=== PATIENT | male | born 1970 | race Caucasian/White ===

== ENCOUNTER 2017-08-04 11:20 | Emergency (ER) | payer OTHER ==
[2017-08-04] MEDS ORDERED: SODIUM CHLORIDE 0.9% 1,000 ML IV STA (11:34)
[2017-08-04] MEDS ORDERED: FAMOTIDINE 20 MG/2 ML VIAL IV STA (11:34)
[2017-08-04] MEDS ORDERED: SODIUM CHLORIDE 0.9% 500 ML IV STA (11:35)
[2017-08-04] MEDS ORDERED: SODIUM CHLORIDE 0.9% 1,000 ML with MVI, ADULT NO.4 WITH VIT K 10 ML, THIAMINE 100 MG, F... IV ONE ×4 (11:35)
--- NOTE | 2017-08-04 11:38 | ED ---
General Adult HPI - General Chief complaint: Arrhythmia/Palpitations Stated complaint: ETOH, palpitations Time Seen by Provider: 08/04/17 11:26 Source: patient, family, RN notes reviewed Mode of arrival: ambulatory Limitations: no limitations - History of Present Illness Initial comments: Patient is a pleasant 46-year-old male presenting to the emergency Department with complaints of palpitations. Patient has been drinking alcohol heavily for the past days. Patient has not been eating or drinking other fluids. Patient felt his heart racing this morning. Patient states essentially that has resolved. Patient is concerned he could be somewhat dehydrated. No chest pain. - Related Data Home Medications Medication Instructions Recorded Confirmed LORazepam [Ativan] 1 mg PO Q6H PRN 08/04/17 08/04/17 Allergies Allergy/AdvReac Type Severity Reaction Status Date / Time Iodinated Contrast- Oral and Allergy Anaphylaxis Verified 08/04/17 11:48 IV Dye iodine Allergy Anaphylaxis Verified 08/04/17 11:48 shellfish derived [Shellfish] Allergy Anaphylaxis Verified 08/04/17 11:48 Review of Systems ROS Statement: Those systems with pertinent positive or pertinent negative responses have been documented in the HPI. ROS Other: All systems not noted in ROS Statement are negative. Constitutional: Denies: fever Eyes: Denies: eye pain ENT: Denies: ear pain Respiratory: Denies: cough Cardiovascular: Reports: palpitations. Denies: chest pain Endocrine: Reports: fatigue Gastrointestinal: Denies: abdominal pain, vomiting Genitourinary: Denies: dysuria Musculoskeletal: Denies: back pain Skin: Denies: rash Neurological: Denies: weakness Past Medical History Additional Past Medical History / Comment(s): alcohol History of Any Multi-Drug Resistant Organisms: None Reported Past Surgical History: Tonsillectomy Past Psychological History: Anxiety, Depression Smoking Status: Never smoker Past Alcohol Use History: Abuse, Heavy Past Drug Use History: None Reported General Exam Limitations: no limitations General appearance: alert, in no apparent distress Head exam: Present: atraumatic Eye exam: Present: normal appearance, PERRL ENT exam: Present: normal oropharynx Neck exam: Present: normal inspection Respiratory exam: Present: normal lung sounds bilaterally Cardiovascular Exam: Present: bradycardia GI/Abdominal exam: Present: soft. Absent: distended, tenderness Extremities exam: Present: normal inspection Neurological exam: Present: alert Psychiatric exam: Present: normal affect, normal mood Skin exam: Present: normal color Course Vital Signs 08/04/17 08/04/17 08/04/17 11:22 11:48 13:15 Temperature 97.3 F L Pulse Rate 110 H 86 94 Respiratory 22 18 18 Rate Blood Pressure 134/98 134/89 137/90 O2 Sat by Pulse 99 94 L 96 Oximetry EKG Findings - EKG Comments: EKG Findings:: Sinus arrhythmia with rate of 94. AK 148. QRS 88. QT 360. QTC 450. Normal axis. Normal QRS. No acute ST change. Medical Decision Making - Medical Decision Making Patient reevaluated and is feeling better. Patient updated on results and need for follow-up. - Lab Data Result diagrams: 08/04/17 11:54 08/04/17 11:54 Lab Results 08/04/17 08/04/17 08/04/17 Range/Units 11:54 11:54 11:54 WBC 8.0 (3.8-10.6) k/uL RBC 5.85 (4.30-5.90) m/uL Hgb 15.7 (13.0-17.5) gm/dL Hct 45.3 (39.0-53.0) % MCV 77.5 L (80.0-100.0) fL MCH 26.9 (25.0-35.0) pg MCHC 34.8 (31.0-37.0) g/dL RDW 15.2 (11.5-15.5) % Plt Count 249 (150-450) k/uL Neutrophils % 67 % Lymphocytes % 25 % Monocytes % 5 % Eosinophils % 1 % Basophils % 1 % Neutrophils # 5.4 (1.3-7.7) k/uL Lymphocytes # 2.0 (1.0-4.8) k/uL Monocytes # 0.4 (0-1.0) k/uL Eosinophils # 0.1 (0-0.7) k/uL Basophils # 0.1 (0-0.2) k/uL PT (9.0-12.0) sec INR (<1.2) APTT (22.0-30.0) sec Sodium 142 (137-145) mmol/L Potassium 4.3 (3.5-5.1) mmol/L Chloride 99 (98-107) mmol/L Carbon Dioxide 18 L (22-30) mmol/L Anion Gap 25 mmol/L BUN 15 (9-20) mg/dL Creatinine 0.95 (0.66-1.25) mg/dL Est GFR (CKD-EPI)AfAm >90 (>60 ml/min/1.73 sqM) Est GFR (CKD-EPI)NonAf >90 (>60 ml/min/1.73 sqM) Glucose 87 (74-99) mg/dL Calcium 9.6 (8.4-10.2) mg/dL Magnesium 2.2 (1.6-2.3) mg/dL Total Bilirubin 1.0 (0.2-1.3) mg/dL AST 99 H (17-59) U/L ALT 83 H (21-72) U/L Alkaline Phosphatase 72 (38-126) U/L Total Creatine Kinase 198 H (55-170) U/L CK-MB (CK-2) 1.3 (0.0-2.4) ng/mL CK-MB (CK-2) Rel Index 0.7 Troponin I <0.012 (0.000-0.034) ng/mL Total Protein 7.6 (6.3-8.2) g/dL Albumin 5.3 H (3.5-5.0) g/dL 08/04/17 Range/Units 11:54 WBC (3.8-10.6) k/uL RBC (4.30-5.90) m/uL Hgb (13.0-17.5) gm/dL Hct (39.0-53.0) % MCV (80.0-100.0) fL MCH (25.0-35.0) pg MCHC (31.0-37.0) g/dL RDW (11.5-15.5) % Plt Count (150-450) k/uL Neutrophils % % Lymphocytes % % Monocytes % % Eosinophils % % Basophils % % Neutrophils # (1.3-7.7) k/uL Lymphocytes # (1.0-4.8) k/uL Monocytes # (0-1.0) k/uL Eosinophils # (0-0.7) k/uL Basophils # (0-0.2) k/uL PT 9.6 (9.0-12.0) sec INR 1.0 (<1.2) APTT 24.4 (22.0-30.0) sec Sodium (137-145) mmol/L Potassium (3.5-5.1) mmol/L Chloride (98-107) mmol/L Carbon Dioxide (22-30) mmol/L Anion Gap mmol/L BUN (9-20) mg/dL Creatinine (0.66-1.25) mg/dL Est GFR (CKD-EPI)AfAm (>60 ml/min/1.73 sqM) Est GFR (CKD-EPI)NonAf (>60 ml/min/1.73 sqM) Glucose (74-99) mg/dL Calcium (8.4-10.2) mg/dL Magnesium (1.6-2.3) mg/dL Total Bilirubin (0.2-1.3) mg/dL AST (17-59) U/L ALT (21-72) U/L Alkaline Phosphatase (38-126) U/L Total Creatine Kinase (55-170) U/L CK-MB (CK-2) (0.0-2.4) ng/mL CK-MB (CK-2) Rel Index Troponin I (0.000-0.034) ng/mL Total Protein (6.3-8.2) g/dL Albumin (3.5-5.0) g/dL Disposition Clinical Impression: Palpitations Disposition: HOME SELF-CARE Condition: Stable Instructions: Palpitations (ED) Additional Instructions: Please follow-up with primary care physician in the next couple days for recheck. Return for chest pain, difficulty breathing, worsening or changing symptoms or other concerns. Discontinue alcohol use. Continue follow-up with Alcoholics Anonymous and counselor. Is patient prescribed a controlled substance at d/c from ED?: No Referrals: Marie Akins MD [Primary Care Provider] - 1-2 days Time of Disposition: 13:38
[2017-08-04 12:01] LABS: Basophils # (A) 0.1 k/uL (0-0.2); Basophils % (A) 1 %; Eosinophils # (A) 0.1 k/uL (0-0.7); Eosinophils % (A) 1 %; HCT 45.3 % (39.0-53.0); HGB 15.7 gm/dL (13.0-17.5); Lymphocytes % (A) 25 %; MCH 26.9 pg (25.0-35.0); MCHC 34.8 g/dL (31.0-37.0); MCV 77.5 fL (80.0-100.0); Mean Platelet Volume 6.3; Monocytes # (A) 0.4 k/uL (0-1.0); Monocytes % (A) 5 %; Neutrophils # (A) 5.4 k/uL (1.3-7.7); Neutrophils % (A) 67 %; Platelet Count 249 k/uL (150-450); RBC 5.85 m/uL (4.30-5.90); RDW 15.2 % (11.5-15.5)
[2017-08-04 12:09] LABS: Partial Thromboplastin Time 24.4 sec (22.0-30.0); Prothrombin Time 9.6 sec (9.0-12.0)
[2017-08-04 12:19] LABS: ALT 83 U/L (21-72); AST 99 U/L (17-59); Albumin 5.3 g/dL (3.5-5.0); Alkaline Phosphatase 72 U/L (38-126); Anion Gap 25 mmol/L; Blood Urea Nitrogen 15 mg/dL (9-20); Calcium 9.6 mg/dL (8.4-10.2); Carbon Dioxide 18 mmol/L (22-30); Chloride 99 mmol/L (98-107); Glucose 87 mg/dL (74-99); Magnesium 2.2 mg/dL (1.6-2.3); Potassium 4.3 mmol/L (3.5-5.1); Sodium 142 mmol/L (137-145); Total Protein 7.6 g/dL (6.3-8.2)
[2017-08-04 12:26] LABS: Creatine Kinase 198 U/L (55-170)
[2017-08-04 12:38] LABS: Creatine Kinase MB 1.3 ng/mL (0.0-2.4); Troponin I <0.012 ng/mL (0.000-0.034)
[2017-08-04 13:16] VITALS: RESP 18
[2017-08-04 15:01] VITALS: BP 132/80; PULSE 61; TEMP 97.6
== END 2017-08-04 15:00 | disposition home or self-care (01) ==
LOC: EC 11:20
DX: R00.2 Palpitations (principal); R00.1 Bradycardia, unspecified; F10.10 Alcohol abuse, uncomplicated; Z91.013 Allergy to seafood; Z91.041 Radiographic dye allergy status; Z91.048 Other nonmedicinal substance allergy status; Z53.8 Procedure and treatment not carried out for other reasons
CPT/HCPCS: 36415; 93005; 80053; 82550; 82553; 83735; 84484; 85025; 85610; 85730; 99285; 96365; 96366; 96375; 96361; J3411

== ENCOUNTER 2017-09-28 08:46 | Emergency (ER) | payer OTHER ==
[2017-09-28 08:59] VITALS: TEMP 97.9
[2017-09-28] MEDS ORDERED: SODIUM CHLORIDE 0.9% 1,000 ML IV STA (09:09)
[2017-09-28] MEDS ORDERED: SODIUM CHLORIDE 0.9% 1,000 ML with MVI, ADULT NO.4 WITH VIT K 10 ML, THIAMINE 100 MG, F... IV ONE ×4 (09:09)
--- NOTE | 2017-09-28 09:26 | ED ---
Alcohol HPI - General Chief Complaint: Alcohol Stated Complaint: Etoh Time Seen by Provider: 09/28/17 09:05 Source: patient, RN notes reviewed Mode of arrival: ambulatory Limitations: no limitations - History of Present Illness Initial Comments: 46-year-old male presents emergency Department chief complaint of alcohol abuse. Patient states he is a binge drinker. Patient states that last 3-4 days she's drank approximately 5 cyst. Patient states that he does not have any medical insurance and states that he cannot afford rehab. Patient sent suicidal or homicidal. Patient denies any physical complaints including he denies chest pain, shortness breath, headache, dizziness, abdominal pain. He's had no withdrawal seizures in the past. Patient does take Ativan but states he doesn't take it when he is binging. - Related Data Home Medications Medication Instructions Recorded Confirmed LORazepam [Ativan] 1 mg PO BID PRN 08/04/17 09/28/17 Previous Rx's Medication Instructions Recorded chlordiazePOXIDE HCl [Librium] 25 mg PO QID #20 capsule 09/28/17 Allergies Allergy/AdvReac Type Severity Reaction Status Date / Time Iodinated Contrast- Oral and Allergy Anaphylaxis Verified 09/28/17 09:31 IV Dye iodine Allergy Anaphylaxis Verified 09/28/17 09:31 shellfish derived [Shellfish] Allergy Anaphylaxis Verified 09/28/17 09:31 Review of Systems ROS Statement: Those systems with pertinent positive or pertinent negative responses have been documented in the HPI. ROS Other: All systems not noted in ROS Statement are negative. Past Medical History Additional Past Medical History / Comment(s): alcohol History of Any Multi-Drug Resistant Organisms: None Reported Past Surgical History: Tonsillectomy Past Psychological History: Anxiety, Depression Smoking Status: Never smoker Past Alcohol Use History: Abuse, Heavy Past Drug Use History: None Reported General Exam Limitations: no limitations General appearance: alert, in no apparent distress Head exam: Present: atraumatic, normocephalic, normal inspection Eye exam: Present: normal appearance, PERRL, EOMI. Absent: scleral icterus, conjunctival injection, periorbital swelling Neck exam: Present: normal inspection. Absent: tenderness, meningismus, lymphadenopathy Respiratory exam: Present: normal lung sounds bilaterally. Absent: respiratory distress, wheezes, rales, rhonchi, stridor Cardiovascular Exam: Present: regular rate, normal rhythm, normal heart sounds. Absent: systolic murmur, diastolic murmur, rubs, gallop, clicks GI/Abdominal exam: Present: soft, normal bowel sounds. Absent: distended, tenderness, guarding, rebound, rigid Neurological exam: Present: alert, oriented X3, CN II-XII intact Skin exam: Present: warm, dry, intact, normal color. Absent: rash Course Vital Signs 09/28/17 08:56 Temperature 97.9 F Pulse Rate 102 H Respiratory 18 Rate Blood Pressure 128/94 O2 Sat by Pulse 95 Oximetry Medical Decision Making - Medical Decision Making 46-year-old male presented from for alcohol abuse. Patient is a binge drinker. Patient is intoxicated though has normal lab work. Patient will be given Librium for alcohol withdrawal and he will follow-up with PCP and outpatient therapy. - Lab Data Result diagrams: 09/28/17 09:30 09/28/17 09:30 Lab Results 09/28/17 09/28/17 09/28/17 Range/Units 09:30 09:30 09:30 WBC 9.6 (3.8-10.6) k/uL RBC 5.92 H (4.30-5.90) m/uL Hgb 15.2 (13.0-17.5) gm/dL Hct 45.1 (39.0-53.0) % MCV 76.2 L (80.0-100.0) fL MCH 25.6 (25.0-35.0) pg MCHC 33.6 (31.0-37.0) g/dL RDW 13.8 (11.5-15.5) % Plt Count 342 (150-450) k/uL Neutrophils % 76 % Lymphocytes % 19 % Monocytes % 3 % Eosinophils % 1 % Basophils % 1 % Neutrophils # 7.3 (1.3-7.7) k/uL Lymphocytes # 1.8 (1.0-4.8) k/uL Monocytes # 0.3 (0-1.0) k/uL Eosinophils # 0.1 (0-0.7) k/uL Basophils # 0.1 (0-0.2) k/uL PT 9.6 (9.0-12.0) sec INR 1.0 (<1.2) Sodium 141 (137-145) mmol/L Potassium 4.6 (3.5-5.1) mmol/L Chloride 103 (98-107) mmol/L Carbon Dioxide 19 L (22-30) mmol/L Anion Gap 19 mmol/L BUN 17 (9-20) mg/dL Creatinine 0.89 (0.66-1.25) mg/dL Est GFR (CKD-EPI)AfAm >90 (>60 ml/min/1.73 sqM) Est GFR (CKD-EPI)NonAf >90 (>60 ml/min/1.73 sqM) Glucose 76 (74-99) mg/dL Calcium 9.3 (8.4-10.2) mg/dL Magnesium 2.2 (1.6-2.3) mg/dL Total Bilirubin 0.6 (0.2-1.3) mg/dL AST 37 (17-59) U/L ALT 46 (21-72) U/L Alkaline Phosphatase 64 (38-126) U/L Total Protein 7.3 (6.3-8.2) g/dL Albumin 5.1 H (3.5-5.0) g/dL Amylase 46 (30-110) U/L Lipase 133 (23-300) U/L Serum Alcohol 281 mg/dL Disposition Clinical Impression: Alcoholic intoxication, Alcohol consumption binge drinking Disposition: HOME SELF-CARE Condition: Stable Instructions: Alcohol Intoxication (ED) Additional Instructions: Please return to the Emergency Department if symptoms worsen or any other concerns. Prescriptions: chlordiazePOXIDE HCl [Librium] 25 mg PO QID #20 capsule Is patient prescribed a controlled substance at d/c from ED?: Yes When asked, does pt state using other controlled substances?: Yes If prescribed controlled substance>3 days was MAPS reviewed?: Yes Referrals: Marie Akins MD [Primary Care Provider] - 1-2 days Time of Disposition: 11:43
[2017-09-28 09:46] LABS: Basophils # (A) 0.1 k/uL (0-0.2); Basophils % (A) 1 %; Eosinophils # (A) 0.1 k/uL (0-0.7); Eosinophils % (A) 1 %; HCT 45.1 % (39.0-53.0); HGB 15.2 gm/dL (13.0-17.5); Lymphocytes # (A) 1.8 k/uL (1.0-4.8); Lymphocytes % (A) 19 %; MCH 25.6 pg (25.0-35.0); MCHC 33.6 g/dL (31.0-37.0); MCV 76.2 fL (80.0-100.0); Mean Platelet Volume 6.2; Monocytes # (A) 0.3 k/uL (0-1.0); Monocytes % (A) 3 %; Neutrophils # (A) 7.3 k/uL (1.3-7.7); Neutrophils % (A) 76 %; Platelet Count 342 k/uL (150-450); RBC 5.92 m/uL (4.30-5.90); RDW 13.8 % (11.5-15.5); WBC 9.6 k/uL (3.8-10.6)
[2017-09-28 10:01] LABS: ALT 46 U/L (21-72); AST 37 U/L (17-59); Albumin 5.1 g/dL (3.5-5.0); Alkaline Phosphatase 64 U/L (38-126); Amylase 46 U/L (30-110); Anion Gap 19 mmol/L; Blood Urea Nitrogen 17 mg/dL (9-20); Calcium 9.3 mg/dL (8.4-10.2); Carbon Dioxide 19 mmol/L (22-30); Chloride 103 mmol/L (98-107); Glucose 76 mg/dL (74-99); Lipase 133 U/L (23-300); Magnesium 2.2 mg/dL (1.6-2.3); Potassium 4.6 mmol/L (3.5-5.1); Sodium 141 mmol/L (137-145); Total Bilirubin 0.6 mg/dL (0.2-1.3); Total Protein 7.3 g/dL (6.3-8.2)
[2017-09-28 10:06] LABS: Alcohol 281 mg/dL
[2017-09-28 10:08] LABS: Prothrombin Time 9.6 sec (9.0-12.0)
[2017-09-28 13:38] VITALS: BP 141/75; PULSE 86; RESP 20
== END 2017-09-28 13:25 | disposition home or self-care (01) ==
LOC: EC 08:46
DX: F10.129 Alcohol abuse with intoxication, unspecified (principal); Z91.041 Radiographic dye allergy status; Z91.013 Allergy to seafood
CPT/HCPCS: 82075; 36415; 80053; 82150; 83690; 83735; 85025; 85610; 80320; 99284; 96365; 96366 ×2; J3411

== ENCOUNTER 2017-10-16 13:23 | Emergency (ER) | payer OTHER ==
[2017-10-16 13:33] VITALS: RESP 20; TEMP 98.6
[2017-10-16] MEDS ORDERED: SODIUM CHLORIDE 0.9% 1,000 ML IV STA (13:49)
[2017-10-16] MEDS ORDERED: SODIUM CHLORIDE 0.9% 1,000 ML with MVI, ADULT NO.4 WITH VIT K 10 ML, THIAMINE 100 MG, F... IV ONE ×4 (13:50)
--- NOTE | 2017-10-16 13:52 | ED ---
Alcohol HPI - General Chief Complaint: Alcohol Stated Complaint: Etoh Time Seen by Provider: 10/16/17 13:39 Source: patient, RN notes reviewed, old records reviewed Mode of arrival: ambulatory Limitations: no limitations - History of Present Illness Initial Comments: Patient is a 38-year-old male presents emergency Department with chief complaint of alcohol intoxication. Patient reports his been on a binge for the past 9 days. He reports strings approximately a fifth a day. Patient states that he has a history of heavy alcoholism. He states that he is not searching for rehab's place. He is concerned because his been drinking so heavily that he thinks he is dehydrated. He reports no vomiting or diarrhea. Patient states that he follows up with AA. He is here with his girlfriend. Patient reports he has prescriptions of Ativan for when he starts going through withdrawals. He states that he plans to withdrawn his own without any help from rehab facility. He's been to rehab multiple times when he was younger. - Related Data Home Medications Medication Instructions Recorded Confirmed LORazepam [Ativan] 1 mg PO BID PRN 08/04/17 09/28/17 Previous Rx's Medication Instructions Recorded chlordiazePOXIDE HCl [Librium] 25 mg PO QID #20 capsule 09/28/17 chlordiazePOXIDE HCl [Librium] 25 mg PO QID #20 capsule 10/16/17 Allergies Allergy/AdvReac Type Severity Reaction Status Date / Time Iodinated Contrast- Oral and Allergy Anaphylaxis Verified 10/16/17 13:33 IV Dye iodine Allergy Anaphylaxis Verified 10/16/17 13:33 shellfish derived [Shellfish] Allergy Anaphylaxis Verified 10/16/17 13:33 Review of Systems ROS Statement: Those systems with pertinent positive or pertinent negative responses have been documented in the HPI. ROS Other: All systems not noted in ROS Statement are negative. Past Medical History Past Medical History: No Reported History Additional Past Medical History / Comment(s): alcohol History of Any Multi-Drug Resistant Organisms: None Reported Past Surgical History: Tonsillectomy Past Psychological History: Anxiety, Depression Smoking Status: Never smoker Past Alcohol Use History: Abuse, Heavy Past Drug Use History: None Reported General Exam - General Exam Comments Initial Comments: 46-year-old male. Patient appears intoxicated. Alert. No significant distress. Limitations: no limitations General appearance: alert, in no apparent distress Head exam: Present: atraumatic, normocephalic, normal inspection Eye exam: Present: normal appearance, PERRL, EOMI. Absent: scleral icterus, conjunctival injection, periorbital swelling ENT exam: Present: normal exam, mucous membranes moist Neck exam: Present: normal inspection. Absent: tenderness, meningismus, lymphadenopathy Respiratory exam: Present: normal lung sounds bilaterally. Absent: respiratory distress, wheezes, rales, rhonchi, stridor Cardiovascular Exam: Present: regular rate, normal rhythm, normal heart sounds. Absent: systolic murmur, diastolic murmur, rubs, gallop, clicks GI/Abdominal exam: Present: soft, normal bowel sounds. Absent: distended, tenderness, guarding, rebound, rigid Extremities exam: Present: normal inspection, full ROM, normal capillary refill. Absent: tenderness, pedal edema, joint swelling, calf tenderness Back exam: Present: normal inspection Neurological exam: Present: alert, oriented X3, CN II-XII intact Psychiatric exam: Present: normal affect, normal mood Skin exam: Present: warm, dry, intact, normal color. Absent: rash Course Vital Signs 10/16/17 13:28 Temperature 98.6 F Pulse Rate 118 H Respiratory 20 Rate Blood Pressure 132/85 O2 Sat by Pulse 97 Oximetry Medical Decision Making - Medical Decision Making This patient's a 46-year-old male with a history of severe alcoholism. He reportedly drinks approximately a fifth a day. He reports trying to discontinue drinking. He does not plan to go to rehab facility. He only wants to urinate. He is here with his girlfriend. Patient was concerned of dehydration. He reports somewhat tachycardic at 112 beats were minute. Patient has had no fevers or chills or any other symptoms. Patient's labwork was reviewed and negative for any significant changes. He does have evidence of anemia. Likely vitamin deficient. At this time Patient reports that he cannot handle Ativan. He would prefer Librium for helping him with detox. I discussed needs follow-up with outpatient services. He will be going home with his girlfriend. Patient understands treatment plan will comply. Return parameters were discussed. - Lab Data Result diagrams: 10/16/17 14:25 10/16/17 14:25 Lab Results 10/16/17 10/16/17 10/16/17 Range/Units 14:25 14:25 14:25 WBC 6.9 (3.8-10.6) k/uL RBC 5.83 (4.30-5.90) m/uL Hgb 15.0 (13.0-17.5) gm/dL Hct 45.0 (39.0-53.0) % MCV 77.1 L (80.0-100.0) fL MCH 25.8 (25.0-35.0) pg MCHC 33.5 (31.0-37.0) g/dL RDW 14.2 (11.5-15.5) % Plt Count 350 (150-450) k/uL Neutrophils % 55 % Lymphocytes % 36 % Monocytes % 4 % Eosinophils % 2 % Basophils % 1 % Neutrophils # 3.8 (1.3-7.7) k/uL Lymphocytes # 2.5 (1.0-4.8) k/uL Monocytes # 0.3 (0-1.0) k/uL Eosinophils # 0.1 (0-0.7) k/uL Basophils # 0.1 (0-0.2) k/uL PT (9.0-12.0) sec INR (<1.2) Sodium 142 (137-145) mmol/L Potassium 4.6 (3.5-5.1) mmol/L Chloride 105 (98-107) mmol/L Carbon Dioxide 21 L (22-30) mmol/L Anion Gap 16 mmol/L BUN 8 L (9-20) mg/dL Creatinine 0.80 (0.66-1.25) mg/dL Est GFR (CKD-EPI)AfAm >90 (>60 ml/min/1.73 sqM) Est GFR (CKD-EPI)NonAf >90 (>60 ml/min/1.73 sqM) Glucose 93 (74-99) mg/dL Calcium 9.7 (8.4-10.2) mg/dL Magnesium 2.4 H (1.6-2.3) mg/dL Total Bilirubin 0.9 (0.2-1.3) mg/dL AST 52 (17-59) U/L ALT 66 (21-72) U/L Alkaline Phosphatase 62 (38-126) U/L Total Protein 7.8 (6.3-8.2) g/dL Albumin 5.1 H (3.5-5.0) g/dL Amylase 55 (30-110) U/L Lipase 147 (23-300) U/L Urine Color Colorless Urine Appearance Clear (Clear) Urine pH 7.0 (5.0-8.0) Ur Specific Ant[place] 1.002 (1.001-1.035) Urine Protein Negative (Negative) Urine Glucose (UA) Negative (Negative) Urine Ketones Negative (Negative) Urine Blood Negative (Negative) Urine Nitrite Negative (Negative) Urine Bilirubin Negative (Negative) Urine Urobilinogen <2.0 (<2.0) mg/dL Ur Leukocyte Esterase Negative (Negative) Urine Opiates Screen Not Detected (NotDetected) Ur Oxycodone Screen Not Detected (NotDetected) Urine Methadone Screen Not Detected (NotDetected) Ur Propoxyphene Screen Not Detected (NotDetected) Ur Barbiturates Screen Not Detected (NotDetected) U Tricyclic Antidepress Not Detected (NotDetected) Ur Phencyclidine Scrn Not Detected (NotDetected) Ur Amphetamines Screen Not Detected (NotDetected) U Methamphetamines Scrn Not Detected (NotDetected) U Benzodiazepines Scrn Detected H (NotDetected) Urine Cocaine Screen Not Detected (NotDetected) U Marijuana (THC) Screen Not Detected (NotDetected) Serum Alcohol 238 mg/dL 10/16/17 Range/Units 14:25 WBC (3.8-10.6) k/uL RBC (4.30-5.90) m/uL Hgb (13.0-17.5) gm/dL Hct (39.0-53.0) % MCV (80.0-100.0) fL MCH (25.0-35.0) pg MCHC (31.0-37.0) g/dL RDW (11.5-15.5) % Plt Count (150-450) k/uL Neutrophils % % Lymphocytes % % Monocytes % % Eosinophils % % Basophils % % Neutrophils # (1.3-7.7) k/uL Lymphocytes # (1.0-4.8) k/uL Monocytes # (0-1.0) k/uL Eosinophils # (0-0.7) k/uL Basophils # (0-0.2) k/uL PT 9.8 (9.0-12.0) sec INR 1.0 (<1.2) Sodium (137-145) mmol/L Potassium (3.5-5.1) mmol/L Chloride (98-107) mmol/L Carbon Dioxide (22-30) mmol/L Anion Gap mmol/L BUN (9-20) mg/dL Creatinine (0.66-1.25) mg/dL Est GFR (CKD-EPI)AfAm (>60 ml/min/1.73 sqM) Est GFR (CKD-EPI)NonAf (>60 ml/min/1.73 sqM) Glucose (74-99) mg/dL Calcium (8.4-10.2) mg/dL Magnesium (1.6-2.3) mg/dL Total Bilirubin (0.2-1.3) mg/dL AST (17-59) U/L ALT (21-72) U/L Alkaline Phosphatase (38-126) U/L Total Protein (6.3-8.2) g/dL Albumin (3.5-5.0) g/dL Amylase (30-110) U/L Lipase (23-300) U/L Urine Color Urine Appearance (Clear) Urine pH (5.0-8.0) Ur Specific Ant[place] (1.001-1.035) Urine Protein (Negative) Urine Glucose (UA) (Negative) Urine Ketones (Negative) Urine Blood (Negative) Urine Nitrite (Negative) Urine Bilirubin (Negative) Urine Urobilinogen (<2.0) mg/dL Ur Leukocyte Esterase (Negative) Urine Opiates Screen (NotDetected) Ur Oxycodone Screen (NotDetected) Urine Methadone Screen (NotDetected) Ur Propoxyphene Screen (NotDetected) Ur Barbiturates Screen (NotDetected) U Tricyclic Antidepress (NotDetected) Ur Phencyclidine Scrn (NotDetected) Ur Amphetamines Screen (NotDetected) U Methamphetamines Scrn (NotDetected) U Benzodiazepines Scrn (NotDetected) Urine Cocaine Screen (NotDetected) U Marijuana (THC) Screen (NotDetected) Serum Alcohol mg/dL Disposition Clinical Impression: Alcoholic intoxication, Alcohol consumption binge drinking Disposition: HOME SELF-CARE Condition: Good Instructions: Alcohol Withdrawal (ED) Additional Instructions: Patient is advised to follow-up outpatient services. Patient should take the medication as prescribed. Return to the emergency department if any alarming signs or symptoms occur. Prescriptions: chlordiazePOXIDE HCl [Librium] 25 mg PO QID #20 capsule Is patient prescribed a controlled substance at d/c from ED?: No Referrals: Marie Akins MD [Primary Care Provider] - 1-2 days Time of Disposition: 15:11
[2017-10-16 14:34] LABS: Basophils # (A) 0.1 k/uL (0-0.2); Basophils % (A) 1 %; Eosinophils # (A) 0.1 k/uL (0-0.7); Eosinophils % (A) 2 %; Lymphocytes # (A) 2.5 k/uL (1.0-4.8); Lymphocytes % (A) 36 %; MCH 25.8 pg (25.0-35.0); MCHC 33.5 g/dL (31.0-37.0); MCV 77.1 fL (80.0-100.0); Mean Platelet Volume 7.5; Monocytes # (A) 0.3 k/uL (0-1.0); Monocytes % (A) 4 %; Neutrophils # (A) 3.8 k/uL (1.3-7.7); Neutrophils % (A) 55 %; Platelet Count 350 k/uL (150-450); RBC 5.83 m/uL (4.30-5.90); RDW 14.2 % (11.5-15.5); WBC 6.9 k/uL (3.8-10.6)
[2017-10-16 14:37] LABS: Appearance,Urine Clear (Clear); Bilirubin,Urine Negative (Negative); Blood,Urine Negative (Negative); Color,Urine Colorless; Glucose,Urine (UA) Negative (Negative); Ketones,Urine Negative (Negative); Leukocyte Esterase,Urine Negative (Negative); Nitrite,Urine Negative (Negative); Protein,Urine Negative (Negative); Specific Gravity,Urine 1.002 (1.001-1.035); Urobilinogen,Urine <2.0 mg/dL (<2.0)
[2017-10-16 14:45] LABS: ALT 66 U/L (21-72); AST 52 U/L (17-59); Albumin 5.1 g/dL (3.5-5.0); Alkaline Phosphatase 62 U/L (38-126); Amylase 55 U/L (30-110); Anion Gap 16 mmol/L; Blood Urea Nitrogen 8 mg/dL (9-20); Calcium 9.7 mg/dL (8.4-10.2); Carbon Dioxide 21 mmol/L (22-30); Chloride 105 mmol/L (98-107); Glucose 93 mg/dL (74-99); Lipase 147 U/L (23-300); Magnesium 2.4 mg/dL (1.6-2.3); Prothrombin Time 9.8 sec (9.0-12.0); Sodium 142 mmol/L (137-145); Total Bilirubin 0.9 mg/dL (0.2-1.3); Total Protein 7.8 g/dL (6.3-8.2)
[2017-10-16 14:49] LABS: Amphetamine Screen,Urine Not Detected (NotDetected); Benzodiazepines Screen,Urine Detected (NotDetected); Cocaine Screen,Urine Not Detected (NotDetected); Opiate Screen,Urine Not Detected (NotDetected); Phencyclidine Screen,Urine Not Detected (NotDetected); Urn Cannabinoid Scrn Not Detected (NotDetected)
[2017-10-16 14:50] LABS: Barbiturate Screen,Urine Not Detected (NotDetected); Methadone Screen, Urine Not Detected (NotDetected); Oxycodone Screen, Urine Not Detected (NotDetected); Tricyclic Antidepressant,Urine Not Detected (NotDetected)
[2017-10-16 14:55] LABS: Alcohol 238 mg/dL
[2017-10-16 14:56] LABS: Potassium 4.6 mmol/L (3.5-5.1)
[2017-10-16] MEDS ORDERED: chlordiazePOXIDE 25 MG CAP PO STA (15:15)
[2017-10-16 15:17] VITALS: BP 158/99; PULSE 91
== END 2017-10-16 16:04 | disposition home or self-care (01) ==
LOC: EC 13:23
DX: F10.129 Alcohol abuse with intoxication, unspecified (principal); D64.9 Anemia, unspecified; Z91.013 Allergy to seafood; Z91.041 Radiographic dye allergy status; Z88.8 Allergy status to other drugs, medicaments and biological substances
CPT/HCPCS: 82075; 36415; 80053; 82150; 83690; 83735; 85025; 85610; 81003; 80306; 80320; 99284; 96365; 96366; J3411

== ENCOUNTER 2017-12-08 20:21 | Emergency (ER) | payer OTHER ==
[2017-12-08 20:34] VITALS: TEMP 98
[2017-12-08] MEDS ORDERED: SODIUM CHLORIDE 0.9% 1,000 ML with MVI, ADULT NO.4 WITH VIT K 10 ML, THIAMINE 100 MG, F... IV ONE ×4 (21:04)
[2017-12-08] MEDS ORDERED: SODIUM CHLORIDE 0.9% 1,000 ML IV ONE (21:04)
[2017-12-08] MEDS ORDERED: DIAZEPAM 5 MG/ML 2 ML INJ IVP STA ×2 (21:05→22:59)
--- NOTE | 2017-12-08 21:18 | ED ---
General Adult HPI - General Chief complaint: Alcohol Stated complaint: ETOH Time Seen by Provider: 12/08/17 20:30 Source: patient, family, RN notes reviewed Mode of arrival: ambulatory Limitations: no limitations - History of Present Illness Initial comments: This is a 46-year-old male who states he's been drinking every day for about 13 days. Patient states he has a history of alcoholism but he's been clean for quite a few years. Patient states he comes in today because he is been nonstop drinking and he hasn't been eating or drinking any other fluids. Patient states he also is been having the dry heaves and wants some help getting his symptoms under control so he can go to rehabilitation. Patient states she's also very anxious. Patient denies any chest pain difficulty breathing or shortness of breath per patient denies any injury or trauma per patient denies any lightheadedness or dizziness. Patient denies any abdominal pain. Patient denies any actual vomiting. Patient denies any diarrhea. Patient denies any recent fever chills or cough. - Related Data Home Medications Medication Instructions Recorded Confirmed diphenhydrAMINE HCL [Benadryl] 25 mg PO HS PRN 12/08/17 12/08/17 Allergies Allergy/AdvReac Type Severity Reaction Status Date / Time Iodinated Contrast- Oral and Allergy Anaphylaxis Verified 12/08/17 21:06 IV Dye iodine Allergy Anaphylaxis Verified 12/08/17 21:06 shellfish derived [Shellfish] Allergy Anaphylaxis Verified 12/08/17 21:06 Review of Systems ROS Statement: Those systems with pertinent positive or pertinent negative responses have been documented in the HPI. ROS Other: All systems not noted in ROS Statement are negative. Past Medical History Past Medical History: No Reported History Additional Past Medical History / Comment(s): alcohol History of Any Multi-Drug Resistant Organisms: None Reported Past Surgical History: Tonsillectomy Past Psychological History: Anxiety, Depression Smoking Status: Never smoker Past Alcohol Use History: Abuse, Heavy Past Drug Use History: None Reported General Exam - General Exam Comments Initial Comments: GENERAL: Patient is well-developed and well-nourished. Patient is nontoxic and well- hydrated and is in no acute distress. Patient does appear intoxicated ENT: Neck is soft and supple. No significant lymphadenopathy is noted. Oropharynx is clear. Moist mucous membranes. Neck has full range of motion without eliciting any pain. EYES: The sclera were anicteric and conjunctiva were pink and moist. Extraocular movements were intact and pupils were equal round and reactive to light. Eyelids were unremarkable. PULMONARY: Unlabored respirations. Good breath sounds bilaterally. No audible rales rhonchi or wheezing was noted. CARDIOVASCULAR: There is a regular rate and rhythm without any murmurs gallops or rubs. ABDOMEN: Soft and nontender with normal bowel sounds. No palpable organomegaly was noted. There is no palpable pulsatile mass. SKIN: Skin is clear with no lesions or rashes and otherwise unremarkable. NEUROLOGIC: Patient is alert and oriented x3. Cranial nerves II through XII are grossly intact. Motor and sensory are also intact. Normal speech, volume and content. Symmetrical smile. MUSCULOSKELETAL: Normal extremities with adequate strength and full range of motion. No lower extremity swelling or edema. No calf tenderness. LYMPHATICS: No significant lymphadenopathy is noted PSYCHIATRIC: Normal psychiatric evaluation. Limitations: no limitations Course Vital Signs 12/08/17 12/08/17 20:31 22:22 Temperature 98.0 F Pulse Rate 98 89 Respiratory 18 16 Rate Blood Pressure 126/91 142/86 O2 Sat by Pulse 96 94 L Oximetry Medical Decision Making - Lab Data Result diagrams: 12/08/17 21:50 12/08/17 21:50 Lab Results 12/08/17 12/08/17 Range/Units 21:50 21:50 WBC 4.3 (3.8-10.6) k/uL RBC 5.27 (4.30-5.90) m/uL Hgb 14.0 (13.0-17.5) gm/dL Hct 42.0 (39.0-53.0) % MCV 79.7 L (80.0-100.0) fL MCH 26.5 (25.0-35.0) pg MCHC 33.3 (31.0-37.0) g/dL RDW 15.4 (11.5-15.5) % Plt Count 223 (150-450) k/uL Neutrophils % 72 % Lymphocytes % 17 % Monocytes % 6 % Eosinophils % 2 % Basophils % 1 % Neutrophils # 3.1 (1.3-7.7) k/uL Lymphocytes # 0.7 L (1.0-4.8) k/uL Monocytes # 0.3 (0-1.0) k/uL Eosinophils # 0.1 (0-0.7) k/uL Basophils # 0.0 (0-0.2) k/uL Sodium 137 (137-145) mmol/L Potassium 4.7 (3.5-5.1) mmol/L Chloride 96 L (98-107) mmol/L Carbon Dioxide 19 L (22-30) mmol/L Anion Gap 22 mmol/L BUN 17 (9-20) mg/dL Creatinine 0.85 (0.66-1.25) mg/dL Est GFR (CKD-EPI)AfAm >90 (>60 ml/min/1.73 sqM) Est GFR (CKD-EPI)NonAf >90 (>60 ml/min/1.73 sqM) Glucose 84 (74-99) mg/dL Calcium 9.4 (8.4-10.2) mg/dL Magnesium 2.4 H (1.6-2.3) mg/dL Total Bilirubin 1.1 (0.2-1.3) mg/dL AST 201 H (17-59) U/L ALT 166 H (21-72) U/L Alkaline Phosphatase 94 (38-126) U/L Total Protein 7.7 (6.3-8.2) g/dL Albumin 5.0 (3.5-5.0) g/dL Serum Alcohol 252 H* mg/dL Disposition Clinical Impression: Alcoholic intoxication Disposition: HOME SELF-CARE Instructions: Alcohol Intoxication (ED) Is patient prescribed a controlled substance at d/c from ED?: No Referrals: Marie Akins MD [Primary Care Provider] - 1-2 days Time of Disposition: 23:00
[2017-12-08 22:20] LABS: Basophils % (A) 1 %; Eosinophils # (A) 0.1 k/uL (0-0.7); Eosinophils % (A) 2 %; Lymphocytes # (A) 0.7 k/uL (1.0-4.8); Lymphocytes % (A) 17 %; MCH 26.5 pg (25.0-35.0); MCHC 33.3 g/dL (31.0-37.0); MCV 79.7 fL (80.0-100.0); Mean Platelet Volume 6.6; Monocytes # (A) 0.3 k/uL (0-1.0); Monocytes % (A) 6 %; Neutrophils # (A) 3.1 k/uL (1.3-7.7); Neutrophils % (A) 72 %; Platelet Count 223 k/uL (150-450); RBC 5.27 m/uL (4.30-5.90); RDW 15.4 % (11.5-15.5); WBC 4.3 k/uL (3.8-10.6)
[2017-12-08 22:24] VITALS: PULSE 89; RESP 16
[2017-12-08 22:35] LABS: ALT 166 U/L (21-72); AST 201 U/L (17-59); Alkaline Phosphatase 94 U/L (38-126); Anion Gap 22 mmol/L; Blood Urea Nitrogen 17 mg/dL (9-20); Calcium 9.4 mg/dL (8.4-10.2); Carbon Dioxide 19 mmol/L (22-30); Chloride 96 mmol/L (98-107); Glucose 84 mg/dL (74-99); Magnesium 2.4 mg/dL (1.6-2.3); Potassium 4.7 mmol/L (3.5-5.1); Sodium 137 mmol/L (137-145); Total Bilirubin 1.1 mg/dL (0.2-1.3); Total Protein 7.7 g/dL (6.3-8.2)
[2017-12-08 22:51] LABS: Alcohol 252 mg/dL
[2017-12-08 23:24] VITALS: BP 144/91
== END 2017-12-08 23:42 | disposition home or self-care (01) ==
LOC: EC 20:21
DX: F10.120 Alcohol abuse with intoxication, uncomplicated (principal); F41.9 Anxiety disorder, unspecified; Z91.048 Other nonmedicinal substance allergy status; Z91.041 Radiographic dye allergy status; Z91.013 Allergy to seafood
CPT/HCPCS: 36415; 80053; 83735; 85025; 80320; 99284; 96365; 96375; 96376; 96361; J3411; J3360

== ENCOUNTER 2017-12-09 04:22 | Inpatient (IN) | payer OTHER ==
[2017-12-09] MEDS ORDERED: SODIUM CHLORIDE 0.9% 1,000 ML IV STA (04:54)
[2017-12-09] MEDS ORDERED: LORazepam 2 MG/ML INJ IV PRN ×2 (04:58)
[2017-12-09] MEDS ORDERED: THIAMINE 100 MG/ML 2 ML VIAL IM STA (04:58)
--- NOTE | 2017-12-09 05:07 | ED ---
General Adult HPI - General Chief complaint: Recheck/Abnormal Lab/Rx Stated complaint: withdrawals Time Seen by Provider: 12/09/17 04:37 Source: patient Mode of arrival: ambulatory Limitations: no limitations - History of Present Illness Initial comments: Brain is a 46-year-old male with a history of alcohol abuse who presents the emergency department today for evaluation of alcohol withdrawal. The patient was seen and evaluated in our hospital earlier in the day, he was noted to be intoxicated at that time though he admitted to wanting to try to get sober. Patient was subsequently discharged home. Patient reports that for the past 13 days he's been drinking at least a fifth of liquor a day. He reports that he has a history of alcohol abuse, he tends to be a binge drinker, he has gone through withdrawal in the past resulting in her Ramírez, nausea and discomfort but has never had seizures or required hospital admission. Patient reports that he hasn't drank since about 3 PM on December 08 and that he is feeling very tremulous. He reports that when he was seen in our emergency department earlier he was given 2 doses of Ativan, he has taken 3 doses of his home Valium and continues to feel tremulous, nauseated area and patient states he is worried that he is going to have a seizure or a stroke. Patient states he doesn't feel comfortable being at home because he is scared something is going to happen to him. Patient states that he believes he was drinking out of depression and attempt to harm himself. Patient states that he is concerned that if he is discharged home he will drink himself to to avoid withdrawal. - Related Data Home Medications Medication Instructions Recorded Confirmed diphenhydrAMINE HCL [Benadryl] 25 mg PO HS PRN 12/08/17 12/08/17 Allergies Allergy/AdvReac Type Severity Reaction Status Date / Time Iodinated Contrast- Oral and Allergy Anaphylaxis Verified 12/09/17 04:30 IV Dye iodine Allergy Anaphylaxis Verified 12/09/17 04:30 shellfish derived [Shellfish] Allergy Anaphylaxis Verified 12/09/17 04:30 Review of Systems ROS Statement: Those systems with pertinent positive or pertinent negative responses have been documented in the HPI. ROS Other: All systems not noted in ROS Statement are negative. Past Medical History Past Medical History: No Reported History Additional Past Medical History / Comment(s): alcohol abuse History of Any Multi-Drug Resistant Organisms: None Reported Past Surgical History: Tonsillectomy Past Psychological History: Anxiety, Depression Smoking Status: Never smoker Past Alcohol Use History: Abuse, Heavy Past Drug Use History: None Reported General Exam - General Exam Comments Initial Comments: GENERAL: Patient is well-developed and well-nourished. Patient is tremulous, diaphoretic and in moderate distress HENT: Normocephalic, Atraumatic. Neck is soft and supple. No significant lymphadenopathy is noted. Oropharynx is clear. Moist mucous membranes. Neck has full range of motion without eliciting any pain. EYES: The sclera were anicteric and conjunctiva were pink and moist. Extraocular movements were intact and pupils were equal round and reactive to light. Eyelids were unremarkable. PULMONARY: Unlabored respirations. CARDIOVASCULAR: Tachycardia, regular Warm and well perfused extremities ABDOMEN: Soft abdomen with normal bowel sounds. Mild tenderness to palpation of the right upper quadrant SKIN: Skin is clear with no lesions or rashes and otherwise unremarkable. NEUROLOGIC: Patient is alert and oriented x3. Cranial nerves II through XII are grossly intact. Patient has a gross tremor worse in the bilateral upper extremities MUSCULOSKELETAL: Normal extremities with adequate strength and full range of motion. No lower extremity swelling or edema. No calf tenderness. LYMPHATICS: No significant lymphadenopathy is noted PSYCHIATRIC: Depression, anxiety, suicidal statements Limitations: no limitations Limitations: no limitations Course Vital Signs 12/09/17 12/09/17 12/09/17 04:28 06:14 07:01 Temperature 97.6 F Pulse Rate 94 73 84 Respiratory 18 18 18 Rate Blood Pressure 153/97 142/91 129/84 O2 Sat by Pulse 96 97 97 Oximetry Medical Decision Making - Medical Decision Making Patient was seen and evaluated, history is obtained from the patient, significant mother bedside as well as review of medical record Patient is a 46-year-old alcoholic male presenting with concern for alcohol withdrawal, on exam he is tremulous and diaphoretic, he appears to be in acute alcohol withdrawal, he is not having any hallucinations, no history of seizing Initial CIWA score is 14 Alcohol withdrawal protocol was ordered Repeat labs were ordered Repeat labs with persistently elevated liver enzymes, likely related to alcohol abuse, mildly elevated bilirubin, we'll trend Alcohol is 113, consistent with the patient's history of not drinking since previous evaluation in the emergency department I offered the patient a plan for discharge home with oral Librium, patient is not comfortable with this plan, patient making vague suicidal statements, expresses concern that he will drink himself to if he is discharged. Patient care discussed with Dr. Glasgow who accepts the patient to his service for alcohol withdraw and possible suicidal ideation. Psychiatry consulted, however patient is not clear for psychiatric evaluation at this time due to alcohol intoxication. - Lab Data Result diagrams: 12/09/17 04:58 12/09/17 04:58 Lab Results 12/09/17 12/09/17 12/09/17 Range/Units 04:58 04:58 05:14 WBC 4.7 (3.8-10.6) k/uL RBC 4.81 (4.30-5.90) m/uL Hgb 12.8 L (13.0-17.5) gm/dL Hct 38.3 L (39.0-53.0) % MCV 79.6 L (80.0-100.0) fL MCH 26.7 (25.0-35.0) pg MCHC 33.5 (31.0-37.0) g/dL RDW 15.3 (11.5-15.5) % Plt Count 192 (150-450) k/uL Neutrophils % 60 % Lymphocytes % 26 % Monocytes % 7 % Eosinophils % 2 % Basophils % 1 % Neutrophils # 2.8 (1.3-7.7) k/uL Lymphocytes # 1.2 (1.0-4.8) k/uL Monocytes # 0.3 (0-1.0) k/uL Eosinophils # 0.1 (0-0.7) k/uL Basophils # 0.1 (0-0.2) k/uL Sodium 133 L (137-145) mmol/L Potassium 4.3 (3.5-5.1) mmol/L Chloride 96 L (98-107) mmol/L Carbon Dioxide 20 L (22-30) mmol/L Anion Gap 17 mmol/L BUN 14 (9-20) mg/dL Creatinine 0.77 (0.66-1.25) mg/dL Est GFR (CKD-EPI)AfAm >90 (>60 ml/min/1.73 sqM) Est GFR (CKD-EPI)NonAf >90 (>60 ml/min/1.73 sqM) Glucose 74 (74-99) mg/dL Calcium 9.2 (8.4-10.2) mg/dL Magnesium 2.1 (1.6-2.3) mg/dL Total Bilirubin 1.4 H (0.2-1.3) mg/dL AST 175 H (17-59) U/L ALT 152 H (21-72) U/L Alkaline Phosphatase 83 (38-126) U/L Total Protein 7.1 (6.3-8.2) g/dL Albumin 4.7 (3.5-5.0) g/dL Urine Opiates Screen Detected H (NotDetected) Ur Oxycodone Screen Not Detected (NotDetected) Urine Methadone Screen Not Detected (NotDetected) Ur Propoxyphene Screen Not Detected (NotDetected) Ur Barbiturates Screen Not Detected (NotDetected) U Tricyclic Antidepress Not Detected (NotDetected) Ur Phencyclidine Scrn Not Detected (NotDetected) Ur Amphetamines Screen Not Detected (NotDetected) U Methamphetamines Scrn Not Detected (NotDetected) U Benzodiazepines Scrn Detected H (NotDetected) Urine Cocaine Screen Not Detected (NotDetected) U Marijuana (THC) Screen Not Detected (NotDetected) Serum Alcohol 113 mg/dL Disposition Clinical Impression: Alcoholic intoxication Disposition: ADMITTED IP TO THIS HOSP Is patient prescribed a controlled substance at d/c from ED?: No Referrals: Marie Akins MD [Primary Care Provider] - 1-2 days
[2017-12-09] MEDS: LORazepam 2 MG/ML INJ IV PRN ×9 (05:12→21:33)
[2017-12-09 05:15] LABS: Basophils # (A) 0.1 k/uL (0-0.2); Basophils % (A) 1 %; Eosinophils # (A) 0.1 k/uL (0-0.7); Eosinophils % (A) 2 %; HCT 38.3 % (39.0-53.0); HGB 12.8 gm/dL (13.0-17.5); Lymphocytes # (A) 1.2 k/uL (1.0-4.8); Lymphocytes % (A) 26 %; MCH 26.7 pg (25.0-35.0); MCHC 33.5 g/dL (31.0-37.0); MCV 79.6 fL (80.0-100.0); Mean Platelet Volume 6.9; Monocytes # (A) 0.3 k/uL (0-1.0); Monocytes % (A) 7 %; Neutrophils # (A) 2.8 k/uL (1.3-7.7); Neutrophils % (A) 60 %; Platelet Count 192 k/uL (150-450); RBC 4.81 m/uL (4.30-5.90); RDW 15.3 % (11.5-15.5); WBC 4.7 k/uL (3.8-10.6)
[2017-12-09 05:26] LABS: ALT 152 U/L (21-72); AST 175 U/L (17-59); Albumin 4.7 g/dL (3.5-5.0); Alkaline Phosphatase 83 U/L (38-126); Anion Gap 17 mmol/L; Blood Urea Nitrogen 14 mg/dL (9-20); Calcium 9.2 mg/dL (8.4-10.2); Carbon Dioxide 20 mmol/L (22-30); Chloride 96 mmol/L (98-107); Glucose 74 mg/dL (74-99); Magnesium 2.1 mg/dL (1.6-2.3); Potassium 4.3 mmol/L (3.5-5.1); Sodium 133 mmol/L (137-145); Total Bilirubin 1.4 mg/dL (0.2-1.3); Total Protein 7.1 g/dL (6.3-8.2)
[2017-12-09 05:39] LABS: Alcohol 113 mg/dL
[2017-12-09 05:52] LABS: Amphetamine Screen,Urine Not Detected (NotDetected); Barbiturate Screen,Urine Not Detected (NotDetected); Benzodiazepines Screen,Urine Detected (NotDetected); Cocaine Screen,Urine Not Detected (NotDetected); Methadone Screen, Urine Not Detected (NotDetected); Opiate Screen,Urine Detected (NotDetected); Oxycodone Screen, Urine Not Detected (NotDetected); Phencyclidine Screen,Urine Not Detected (NotDetected); Tricyclic Antidepressant,Urine Not Detected (NotDetected); Urn Cannabinoid Scrn Not Detected (NotDetected)
[2017-12-09] MEDS ORDERED: NALOXONE 0.4 MG/ML 1 ML VIAL IV PRN (06:39)
[2017-12-09] MEDS ORDERED: IBUPROFEN 400 MG TAB PO PRN (06:39)
--- NOTE | 2017-12-09 11:18 | P.HPIM ---
History of Present Illness H&P Date: 12/09/17 Chief Complaint: Alcohol withdrawal This is a 46-year-old male patient of Dr. smart. Patient presented to the emergency room with complaints of alcohol abuse. Patient resented to the emergency department early in the day and was noted to be intoxicated at that time. Patient states he has been drinking a fifth a day of vodka for the past 13 days. Patient states he's intermittently a binge drinker he will go 30 days without drinking and then binge drink for 13+ days of hard liquor. Patient states he's been struggling with alcohol abuse for many years. Patient states he was sober for 7 years and then relapsed. Patient states he is ready to be sober and he has a good support system and he would like to start the process of sobriety. At this time patient states he does not want to harm himself or anyone else. Sitter is at bedside for patient safety. Patient is having active tremors. Patient is on [facility] protocol for alcohol withdrawal. Serum alcohol on admission 113. Patient also positive for opioids and benzodiazepines. ALT 152, AST 175 and total bili 1.4. Patient does report he' s had elevated liver enzymes in the past. At this time patient denies any upper abdominal pain. Patient denies any nausea or vomiting. Will order liver ultrasound. Patient has a known past medical history of EtOH abuse, anxiety and depression. Patient's Patient reports no other medical history. Patient denies any cardiac history. Patient did state he was treated for bronchitis recently but has completed treatment and feels much improved. At this time patient denies chest pain or shortness of breath. Patient denies nausea vomiting or diarrhea. Patient denies any urinary burning or frequency. Psychiatry consulted. Review of Systems Please refer to HPI otherwise unremarkable Past Medical History Past Medical History: No Reported History Additional Past Medical History / Comment(s): alcohol abuse History of Any Multi-Drug Resistant Organisms: None Reported Past Surgical History: Tonsillectomy Additional Past Surgical History / Comment(s): bilateral myringotomies/tubes x2 Past Anesthesia/Blood Transfusion Reactions: No Reported Reaction Past Psychological History: Anxiety, Depression Smoking Status: Never smoker Past Alcohol Use History: Abuse, Heavy Past Drug Use History: None Reported - Past Family History Father Family Medical History: Cancer Additional Family Medical History / Comment(s): Father of lymphoma at the age of 52 yrs. Mother Family Medical History: Cancer Additional Family Medical History / Comment(s): Mother is living, she has lung cancer. She is a smoker. Medications and Allergies Home Medications Medication Instructions Recorded Confirmed Type diphenhydrAMINE HCL [Benadryl] 25 mg PO HS PRN 12/08/17 12/08/17 History Allergies Allergy/AdvReac Type Severity Reaction Status Date / Time Iodinated Contrast- Oral and Allergy Anaphylaxis Verified 12/09/17 04:30 IV Dye iodine Allergy Anaphylaxis Verified 12/09/17 04:30 shellfish derived [Shellfish] Allergy Anaphylaxis Verified 12/09/17 04:30 Physical Exam Vitals: Vital Signs Temp Pulse Resp BP Pulse Ox 12/09/17 10:00 151/93 94 L 12/09/17 09:30 149/97 95 12/09/17 09:00 18 145/93 94 L 12/09/17 08:30 151/120 94 L 12/09/17 08:00 20 155/91 97 12/09/17 07:30 104/68 96 12/09/17 07:01 84 18 129/84 97 12/09/17 06:14 73 18 142/91 97 12/09/17 04:28 97.6 F 94 18 153/97 96 Intake and Output 12/08/17 12/09/17 12/09/17 22:59 06:59 14:59 Other: Weight 90.718 kg Head normocephalic Neck supple Lungs clear to auscultation bilaterally no wheezing or crackles Heart regular rate and rhythm S1-S2, no rub or gallop Abdomen is soft nontender nondistended positive bowel sounds no hepatosplenomegaly Extremities no edema Neuro alert and orientated to 3. Noted tremor to upper extremities Results CBC & Chem 7: 12/09/17 04:58 12/09/17 04:58 Labs: Abnormal Lab Results - Last 24 Hours (Table) 12/09/17 12/09/17 12/09/17 Range/Units 04:58 04:58 05:14 Hgb 12.8 L (13.0-17.5) gm/dL Hct 38.3 L (39.0-53.0) % MCV 79.6 L (80.0-100.0) fL Sodium 133 L (137-145) mmol/L Chloride 96 L (98-107) mmol/L Carbon Dioxide 20 L (22-30) mmol/L Total Bilirubin 1.4 H (0.2-1.3) mg/dL AST 175 H (17-59) U/L ALT 152 H (21-72) U/L Urine Opiates Screen Detected H (NotDetected) U Benzodiazepines Scrn Detected H (NotDetected) Thrombosis Risk Factor Assmnt - Choose All That Apply Any of the Below Risk Factors Present?: Yes Each Factor Represents 1 point: Age 41-60 years, Obesity (BMI >25) Other Risk Factors: No Other congenital or acquired thrombophilia - If yes, enter type in comment: No Thrombosis Risk Factor Assessment Total Risk Factor Score: 2 Thrombosis Risk Factor Assessment Level: Low Risk Assessment and Plan Assessment: 1. Alcohol withdrawal. Patient states he's been drinking a fifth of alcohol for the past 13 days. Serum alcohol 113 upon arrival. Patient admits to history of alcohol abuse and sobriety and relapse in the past. Alcohol withdrawal protocol has been ordered. Continue thiamine. Psych consult has been placed. Patient's sitter at bedside for safety 2. History of EtOH in the past 3. Elevated liver enzymes. AST 175, ALC 152 and total bili 1.4. Liver ultrasound has been ordered. Continue to monitor closely 4. History of anxiety and depression DVT prophylaxis Lovenox. GI prophylaxis Protonix Time with Patient: Greater than 30 (Greater than 60% of the total time spent in counseling and coordination of care. I performed an examination of the patient and discussed their management with the Nurse Practitioner. I have reviewed the Nurse Practitioner's notes and agree with the documented findings and plan of care)
[2017-12-09 12:12] LABS: Amylase 59 U/L (30-110); Lipase 384 U/L (23-300)
--- NOTE | 2017-12-09 12:59 | P.CN ---
Psychiatric Consult - . Consult date: 12/09/17 Consult:: 12/09/17 12:31 Alcohol and suicidal ideation Assessment and Plan Assessment: Chief Complaint for consult: Alcohol withdrawal This is a 46-year-old male patient of Dr. smart. Patient presented to the emergency room with complaints of alcohol abuse. Patient resented to the emergency department early in the day and was noted to be intoxicated at that time. Patient states he has been drinking a fifth a day of vodka for the past 13 days. Patient states he's intermittently a binge drinker he will go 30 days without drinking and then binge drink for 13+ days of hard liquor. Patient states he's been struggling with alcohol abuse for many years. Patient states he was sober for 7 years and then relapsed. Patient states he is ready to be sober and he has a good support system and he would like to start the process of sobriety. At this time patient states he does not want to harm himself or anyone else. Sitter is at bedside for patient safety. Patient is having active tremors. Patient is on [facility] protocol for alcohol withdrawal. Serum alcohol on admission 113. Patient also positive for opioids and benzodiazepines. ALT 152, AST 175 and total bili 1.4. Patient does report he' s had elevated liver enzymes in the past. At this time patient denies any upper abdominal pain. Patient denies any nausea or vomiting. Will order liver ultrasound. Patient has a known past medical history of EtOH abuse, anxiety and depression. Patient's reports no other medical history. Patient denies any cardiac history. Patient did state he was treated for bronchitis recently but has completed treatment and feels much improved. At this time patient denies chest pain or shortness of breath. Patient denies nausea vomiting or diarrhea. Patient denies any urinary burning or frequency. Psychiatry consulted. Past Medical History Past Medical History: No Reported History Additional Past Medical History / Comment(s): alcohol abuse History of Any Multi-Drug Resistant Organisms: None Reported Past Surgical History: Tonsillectomy Additional Past Surgical History / Comment(s): bilateral myringotomies/tubes x2 Past Anesthesia/Blood Transfusion Reactions: No Reported Reaction Past Psychological History: Anxiety, Depression Smoking Status: Never smoker Past Alcohol Use History: Abuse, Heavy Past Drug Use History: None Reported Home Medications Medication Instructions Recorded Confirmed Type diphenhydrAMINE HCL [Benadryl] 25 mg PO HS PRN 12/08/17 12/08/17 History Allergies Allergy/AdvReac Type Severity Reaction Status Date / Time Iodinated Contrast- Oral and Allergy Anaphylaxis Verified 12/09/17 04:30 IV Dye iodine Allergy Anaphylaxis Verified 12/09/17 04:30 shellfish derived [Shellfish] Allergy Anaphylaxis Verified 12/09/17 04:30 Mental status examination: This is a 46-year-old male who came in the hospital due to overwhelming alcohol use disorder severe and stated in the emergency room he was suicidal. Today's evaluation finds him able to be oriented to person place and time and situation hernandez in the hospital. He has not suicidal nor homicidal at the current time. He is sad and overwhelmed and the fact that he cannot control his drinking at the present time. He denies any auditory or visual hallucinations. Does not respond to internal stimuli nor has a normal conversation regarding what would be best for him including going to long-term residential treatment. He has been attempting to stop drinking on his own is not able to do that. He came in the hospital with last night and desperation from family intervention and wanting him to get treatment. In light of adults any suicidal homicidal ideation is not appropriate for this psychiatric floor. He needs to be detoxed and social work to assist in placement at [facility] and/or [facility] for dual diagnoses unit CDU. Clinical impression: 1. Alcohol withdrawal. Patient states he's been drinking a fifth of alcohol for the past 13 days. Serum alcohol 113 upon arrival. Patient admits to history of alcohol abuse and sobriety and relapse in the past. Alcohol withdrawal protocol has been ordered. Continue thiamine. Psych consult has been placed. Patient's sitter at bedside for safety 2. History of EtOH in the past 3. Elevated liver enzymes. AST 175, ALC 152 and total bili 1.4. Liver ultrasound has been ordered. Continue to monitor closely 4. History of anxiety and depression Psychiatric recommendations: Detox from alcohol and referral to [facility] for residential substance abuse treatment. His nothing further I can do from a psychiatric standpoint since he is not suicidal homicidal and denies severe depression and anxiety, and not admitting to any auditory or visual or tactile hallucinations. Thank you for the consult Dheeraj Foreman D.O. PhD attending psychiatrist Aysha Vanessa (1) Alcoholic intoxication Current Visit: Yes Status: Acute Priority: Medium Code(s): F10.929 - ALCOHOL USE, UNSPECIFIED WITH INTOXICATION, UNSPECIFIED SNOMED Code(s): 06882672 Time with Patient: Less than 30
[2017-12-09 13:36] VITALS: BMI 30.4
--- NOTE | 2017-12-09 15:03 | US ---
EXAMINATION TYPE: US liver DATE OF EXAM: 12/09/2017 COMPARISON: NONE CLINICAL HISTORY: elevated liver enzymes. no symptoms per patient EXAM MEASUREMENTS: Liver Length: 21.7 cm Gallbladder Wall: 0.2 cm CBD: 0.6 cm Right Kidney: 10.6 x 6.4 x 5.8 cm bowel gas limits exam Pancreas: not seen due to bowel gas Liver: There is increased echogenicity of the hepatic parenchyma with diminished visualization of th e portal triads most commonly relating to hepatic steatosis and limiting evaluation for underlying he patic masses. However there is a hypoechoic right posterior lobe lesion measuring 1.5cm. This is avas cular. There is questionable increased or transmission on a single image therefore further characteri zation is recommended with CT. Gallbladder: wnl Evidence for sonographic Carranza's sign: no CBD: wnl Right Kidney: wnl IMPRESSION: 1. Findings most commonly related to hepatic steatosis with solitary 1.5 cm hypoechoic hepatic lesion that is incompletely characterized. Three-phase enhanced CT is recommended for further characterizat ion. 2. Nonvisualization of the pancreas.
[2017-12-09] MEDS: THIAMINE 100 MG TAB PO SCH ×2 (15:33→16:02)
[2017-12-09 21:03] LABS: Iron Saturation 107.94 (15.00-50.00)
[2017-12-10] MEDS: LORazepam 2 MG/ML INJ IV PRN ×5 (01:23→22:33)
[2017-12-10] MEDS: PANTOPRAZOLE 40 MG TABLET PO SCH (08:06)
[2017-12-10] MEDS: THIAMINE 100 MG TAB PO SCH ×2 (08:06→16:47)
[2017-12-10] MEDS: ENOXAPARIN 40 MG/0.4 ML SYRINGE SQ SCH (08:06)
[2017-12-10 08:42] LABS: Basophils % (A) 1 %; Eosinophils # (A) 0.1 k/uL (0-0.7); Eosinophils % (A) 3 %; HCT 39.4 % (39.0-53.0); HGB 12.8 gm/dL (13.0-17.5); Lymphocytes # (A) 0.7 k/uL (1.0-4.8); Lymphocytes % (A) 17 %; MCH 26.3 pg (25.0-35.0); MCHC 32.4 g/dL (31.0-37.0); MCV 81.1 fL (80.0-100.0); Mean Platelet Volume 7.1; Monocytes # (A) 0.3 k/uL (0-1.0); Monocytes % (A) 7 %; Neutrophils # (A) 2.9 k/uL (1.3-7.7); Neutrophils % (A) 71 %; Platelet Count 143 k/uL (150-450); RBC 4.86 m/uL (4.30-5.90); RDW 15.3 % (11.5-15.5); WBC 4.1 k/uL (3.8-10.6)
[2017-12-10 09:07] LABS: ALT 200 U/L (21-72); AST 308 U/L (17-59); Alkaline Phosphatase 83 U/L (38-126); Anion Gap 13 mmol/L; Blood Urea Nitrogen 12 mg/dL (9-20); Calcium 9.3 mg/dL (8.4-10.2); Carbon Dioxide 25 mmol/L (22-30); Chloride 97 mmol/L (98-107); Glucose 95 mg/dL (74-99); Potassium 3.8 mmol/L (3.5-5.1); Sodium 135 mmol/L (137-145); Total Bilirubin 1.4 mg/dL (0.2-1.3); Total Protein 6.4 g/dL (6.3-8.2)
--- NOTE | 2017-12-10 15:29 | P.PN ---
Subjective Progress Note Date: 12/10/17 This is a 46-year-old male patient of Dr. smart. Patient presented to the emergency room with complaints of alcohol abuse. Patient resented to the emergency department early in the day and was noted to be intoxicated at that time. Patient states he has been drinking a fifth a day of vodka for the past 13 days. Patient states he's intermittently a binge drinker he will go 30 days without drinking and then binge drink for 13+ days of hard liquor. Patient states he's been struggling with alcohol abuse for many years. Patient states he was sober for 7 years and then relapsed. Patient states he is ready to be sober and he has a good support system and he would like to start the process of sobriety. At this time patient states he does not want to harm himself or anyone else. Sitter is at bedside for patient safety. Patient is having active tremors. Patient is on [facility] protocol for alcohol withdrawal. Serum alcohol on admission 113. Patient also positive for opioids and benzodiazepines. ALT 152, AST 175 and total bili 1.4. Patient does report he' s had elevated liver enzymes in the past. At this time patient denies any upper abdominal pain. Patient denies any nausea or vomiting. Will order liver ultrasound. Patient has a known past medical history of EtOH abuse, anxiety and depression. Patient's Patient reports no other medical history. Patient denies any cardiac history. Patient did state he was treated for bronchitis recently but has completed treatment and feels much improved. At this time patient denies chest pain or shortness of breath. Patient denies nausea vomiting or diarrhea. Patient denies any urinary burning or frequency. Psychiatry consulted. On 12/10/2017 patient is alert and oriented 3 in no apparent distress he denies any tremor denies any hallucinations he has been tolerating diet well his Ativan requirements are down to 1 mg every 3 hours he was using Ativan every hour yesterday . There is no fever or chills no headache or dizziness there is no chest pain or shortness of breath no cough no nausea or vomiting no abdominal pain no diarrhea and no urinary symptoms Objective - Vital Signs Vital signs: Vital Signs Temp 98.4 F 12/10/17 14:45 Pulse 84 12/10/17 14:45 Resp 16 12/10/17 14:45 BP 123/65 12/10/17 14:45 Pulse Ox 98 12/10/17 14:45 Intake & Output 12/09/17 12/10/17 12/10/17 18:59 06:59 18:59 Intake Total 200 Balance 200 Weight 90.718 kg 90.718 kg Intake: Oral 200 Other: # Voids 1 # Bowel Movements 1 - Exam Head normocephalic and atraumatic Neck supple no JVD no goiter Lungs clear to auscultation bilaterally no wheezing or crackles Heart regular rate and rhythm S1-S2, no rub or gallop Abdomen is soft nontender nondistended positive bowel sounds no hepatosplenomegaly Extremities no edema no cyanosis or clubbing Neuro alert and orientated to 3. Noted tremor to upper extremities - Labs CBC & Chem 7: 12/10/17 08:09 12/10/17 08:09 Labs: Abnormal Lab Results - Last 24 Hours (Table) 12/09/17 12/10/17 12/10/17 Range/Units 04:58 08:09 08:09 Hgb 12.8 L (13.0-17.5) gm/dL Plt Count 143 L (150-450) k/uL Lymphocytes # 0.7 L (1.0-4.8) k/uL Sodium 135 L (137-145) mmol/L Chloride 97 L (98-107) mmol/L Iron 204 H (65-175) ug/dL TIBC 189 L (228-460) ug/dL Iron Saturation 107.94 H (15.00-50.00) Ferritin 2839.2 H (22.0-322.0) ng/mL Total Bilirubin 1.4 H (0.2-1.3) mg/dL AST 308 H (17-59) U/L ALT 200 H (21-72) U/L Assessment and Plan Plan: 1. Alcohol withdrawal. Patient states he's been drinking a fifth of alcohol for the past 13 days. Serum alcohol 113 upon arrival. Patient admits to history of alcohol abuse and sobriety and relapse in the past. Alcohol withdrawal protocol has been ordered. Continue thiamine. Psych consult has been placed. Patient's sitter at bedside for safety 2. History of EtOH in the past 3. Elevated liver enzymes. AST 175, ALC 152 and total bili 1.4. Liver ultrasound has been ordered. Continue to monitor closely 4. History of anxiety and depression 5.mild acute pancreatitis with mild elevation in lipase level at 384 on presentation, the upper normal level is 300, will recheck amylase and lipase tomorrow DVT prophylaxis Lovenox. GI prophylaxis Protonix
[2017-12-11] MEDS: LORazepam 2 MG/ML INJ IV PRN ×5 (03:05→19:47)
[2017-12-11] MEDS: PANTOPRAZOLE 40 MG TABLET PO SCH (08:24)
[2017-12-11] MEDS: ENOXAPARIN 40 MG/0.4 ML SYRINGE SQ SCH (08:24)
[2017-12-11] MEDS: THIAMINE 100 MG TAB PO SCH ×2 (08:24→16:47)
[2017-12-11 10:03] LABS: Basophils % (A) 1 %; Eosinophils # (A) 0.2 k/uL (0-0.7); Eosinophils % (A) 5 %; HCT 42.1 % (39.0-53.0); Lymphocytes % (A) 22 %; MCH 27.1 pg (25.0-35.0); MCHC 33.4 g/dL (31.0-37.0); MCV 81.1 fL (80.0-100.0); Mean Platelet Volume 7.7; Monocytes # (A) 0.3 k/uL (0-1.0); Monocytes % (A) 7 %; Neutrophils # (A) 2.8 k/uL (1.3-7.7); Neutrophils % (A) 64 %; Platelet Count 130 k/uL (150-450); RBC 5.19 m/uL (4.30-5.90); RDW 15.2 % (11.5-15.5); WBC 4.4 k/uL (3.8-10.6)
--- NOTE | 2017-12-11 10:16 | P.PN ---
Subjective Progress Note Date: 12/11/17 This is a 46-year-old male patient of Dr. smart. Patient presented to the emergency room with complaints of alcohol abuse. Patient resented to the emergency department early in the day and was noted to be intoxicated at that time. Patient states he has been drinking a fifth a day of vodka for the past 13 days. Patient states he's intermittently a binge drinker he will go 30 days without drinking and then binge drink for 13+ days of hard liquor. Patient states he's been struggling with alcohol abuse for many years. Patient states he was sober for 7 years and then relapsed. Patient states he is ready to be sober and he has a good support system and he would like to start the process of sobriety. At this time patient states he does not want to harm himself or anyone else. Sitter is at bedside for patient safety. Patient is having active tremors. Patient is on [facility] protocol for alcohol withdrawal. Serum alcohol on admission 113. Patient also positive for opioids and benzodiazepines. ALT 152, AST 175 and total bili 1.4. Patient does report he' s had elevated liver enzymes in the past. At this time patient denies any upper abdominal pain. Patient denies any nausea or vomiting. Will order liver ultrasound. Patient has a known past medical history of EtOH abuse, anxiety and depression. Patient's Patient reports no other medical history. Patient denies any cardiac history. Patient did state he was treated for bronchitis recently but has completed treatment and feels much improved. At this time patient denies chest pain or shortness of breath. Patient denies nausea vomiting or diarrhea. Patient denies any urinary burning or frequency. Psychiatry consulted. On 12/10/2017 patient is alert and oriented 3 in no apparent distress he denies any tremor denies any hallucinations he has been tolerating diet well his Ativan requirements are down to 1 mg every 3 hours he was using Ativan every hour yesterday . There is no fever or chills no headache or dizziness there is no chest pain or shortness of breath no cough no nausea or vomiting no abdominal pain no diarrhea and no urinary symptoms On 12/11/2017 patient is alert and oriented 3. Patient states he has been decreasing down and Ativan requirements. Patient does admit that he still having some shakiness and diaphoresis. at this time patient denies chest pain or shortness breath. Patient denies nausea vomiting or diarrhea. Patient denies any abdominal pain. Patient denies any urinary symptoms Objective - Vital Signs Vital signs: Vital Signs Temp 98.2 F 12/11/17 07:00 Pulse 75 12/11/17 07:00 Resp 18 12/11/17 07:00 BP 145/92 12/11/17 07:00 Pulse Ox 97 12/11/17 07:00 Intake & Output 12/10/17 12/11/17 12/11/17 18:59 06:59 18:59 Intake Total 200 900 Balance 200 900 Weight 90.718 kg Intake: Oral 200 900 Other: # Voids 1 # Bowel Movements 1 - Exam Head normocephalic Neck supple Lungs clear to auscultation bilaterally no wheezing or crackles Heart regular rate and rhythm S1-S2, no rub or gallop Abdomen is soft nontender nondistended positive bowel sounds no hepatosplenomegaly Extremities no edema Neuro alert and orientated to 3 - Labs CBC & Chem 7: 12/10/17 08:09 12/10/17 08:09 Assessment and Plan Assessment: 1. Alcohol withdrawal. Patient states he's been drinking a fifth of alcohol for the past 13 days. Serum alcohol 113 upon arrival. Patient admits to history of alcohol abuse and sobriety and relapse in the past. Alcohol withdrawal protocol has been ordered. Continue thiamine. Psych consult has been placed. Patient's sitter at bedside for safety. Psychology evaluated patient. Per psychology patient to continue detox hemoglobin referral to [email or web address] For residential substance abuse treatment. Patient is not suicidal or homicidal per psychiatry. 2. History of EtOH in the past 3. Elevated liver enzymes. AST 175, ALC 152 and total bili 1.4. Liver ultrasound has been ordered. Continue to monitor closely. Ultrasound of the liver completed showing findings most commonly related to hepatic steatosis with solitary 1.5 cm hypoechoic hepatic lesion is incompletely characterized. GI services have been consulted for further evaluation. Amylase 59. Lipase 384. Total bili 1.4, AST 308 and ALT 200. We'll continue to monitor closely. Awaiting GI consult 4. History of anxiety and depression DVT prophylaxis Lovenox. GI prophylaxis Protonix I performed an examination of the patient and discussed their management with the Nurse Practitioner. I have reviewed the Nurse Practitioner's notes and agree with the documented findings and plan of care
[2017-12-11 10:20] LABS: ALT 386 U/L (21-72); AST 478 U/L (17-59); Albumin 4.2 g/dL (3.5-5.0); Alkaline Phosphatase 133 U/L (38-126); Amylase 83 U/L (30-110); Anion Gap 9 mmol/L; Blood Urea Nitrogen 12 mg/dL (9-20); Calcium 9.7 mg/dL (8.4-10.2); Carbon Dioxide 27 mmol/L (22-30); Chloride 101 mmol/L (98-107); Glucose 118 mg/dL (74-99); Lipase 621 U/L (23-300); Potassium 3.8 mmol/L (3.5-5.1); Sodium 137 mmol/L (137-145); Total Bilirubin 1.6 mg/dL (0.2-1.3); Total Protein 6.8 g/dL (6.3-8.2)
[2017-12-12] MEDS: LORazepam 2 MG/ML INJ IV PRN ×5 (03:45→15:32)
[2017-12-12] MEDS: ENOXAPARIN 40 MG/0.4 ML SYRINGE SQ SCH (08:24)
[2017-12-12] MEDS: PANTOPRAZOLE 40 MG TABLET PO SCH (08:24)
[2017-12-12 09:10] LABS: Basophils % (A) 1 %; Eosinophils # (A) 0.2 k/uL (0-0.7); Eosinophils % (A) 6 %; HCT 39.9 % (39.0-53.0); HGB 12.8 gm/dL (13.0-17.5); Lymphocytes % (A) 24 %; MCH 26.5 pg (25.0-35.0); MCHC 32.2 g/dL (31.0-37.0); MCV 82.5 fL (80.0-100.0); Mean Platelet Volume 7.7; Monocytes # (A) 0.3 k/uL (0-1.0); Monocytes % (A) 8 %; Neutrophils # (A) 2.2 k/uL (1.3-7.7); Neutrophils % (A) 57 %; Platelet Count 140 k/uL (150-450); RBC 4.83 m/uL (4.30-5.90); RDW 15.4 % (11.5-15.5); WBC 3.9 k/uL (3.8-10.6)
[2017-12-12] MEDS ORDERED: BARIUM SULFATE 450 ML ORAL.SUSP BOTTLE PO PRN (09:15)
--- NOTE | 2017-12-12 09:29 | CDI ---
Last Revision, January 2017 Documentation Clarification Form Date: 12/12/2017 9:19:55 AM From: Maranda VelazquezLISANDRO, CCDS Admit Date: 12/09/2017 6:39:00 AM Patient Name: Jose Martin Elliott Visit Number: [id number] Discharge Date: ATTENTION: The Clinical Documentation Specialists (CDI) and [facility] Coding Staff appreciate your assistance in clarifying documentation. Please respond to the clarification below the line at the bottom and electronically sign. The CDI & [facility] Coding staff will review the response and follow-up if needed. Please note: Queries are made part of the Legal Health Record. If you have any questions, please contact the author of this message via ITS. Jacey Hernandez MD: Per the 12/10 attending progress note: Mild Acute Pancreatitis with mild elevation in lipase level (384) present on admission is documented. Patient history/risk factors: Alcohol abuse with previous episodes of withdrawal , sobriety & relapse. Clinical Indicators: Presented intoxicated in alcohol withdrawal. Lab findings: AST 175, ALT 152, Lipase 384. Radiology findings: US Liver: Hepatic steatosis with solitary 1.5 cm hypoechoic hepatic lesion. Vital Signs: BP 153/97 Treatment: EtOH withdrawal protocol, fall precautions, IV Ativan, IV Narcan, po Vit B1. In your professional opinion, can you please clarify the type of pancreatitis, if known: Pancreatitis, related to alcohol Pancreatitis. not related to alcohol Other, please specify Unable to determine Pancreatitis, related to alcohol MTDD
[2017-12-12 09:35] LABS: ALT 251 U/L (21-72); AST 173 U/L (17-59); Albumin 3.7 g/dL (3.5-5.0); Alkaline Phosphatase 131 U/L (38-126); Anion Gap 9 mmol/L; Blood Urea Nitrogen 9 mg/dL (9-20); Calcium 9.1 mg/dL (8.4-10.2); Carbon Dioxide 22 mmol/L (22-30); Chloride 104 mmol/L (98-107); Glucose 135 mg/dL (74-99); Potassium 3.7 mmol/L (3.5-5.1); Sodium 135 mmol/L (137-145); Total Protein 6.1 g/dL (6.3-8.2)
[2017-12-12] MEDS ORDERED: methylPREDNISolone SOD SUCCI 125 MG/2 ML VIAL IV ONE ×2 (10:37→23:00)
[2017-12-12] MEDS: THIAMINE 100 MG TAB PO SCH ×2 (11:07→18:23)
--- NOTE | 2017-12-12 11:31 | P.PN ---
Subjective Progress Note Date: 12/12/17 This is a 46-year-old male patient of Dr. smart. Patient presented to the emergency room with complaints of alcohol abuse. Patient resented to the emergency department early in the day and was noted to be intoxicated at that time. Patient states he has been drinking a fifth a day of vodka for the past 13 days. Patient states he's intermittently a binge drinker he will go 30 days without drinking and then binge drink for 13+ days of hard liquor. Patient states he's been struggling with alcohol abuse for many years. Patient states he was sober for 7 years and then relapsed. Patient states he is ready to be sober and he has a good support system and he would like to start the process of sobriety. At this time patient states he does not want to harm himself or anyone else. Sitter is at bedside for patient safety. Patient is having active tremors. Patient is on [facility] protocol for alcohol withdrawal. Serum alcohol on admission 113. Patient also positive for opioids and benzodiazepines. ALT 152, AST 175 and total bili 1.4. Patient does report he' s had elevated liver enzymes in the past. At this time patient denies any upper abdominal pain. Patient denies any nausea or vomiting. Will order liver ultrasound. Patient has a known past medical history of EtOH abuse, anxiety and depression. Patient's Patient reports no other medical history. Patient denies any cardiac history. Patient did state he was treated for bronchitis recently but has completed treatment and feels much improved. At this time patient denies chest pain or shortness of breath. Patient denies nausea vomiting or diarrhea. Patient denies any urinary burning or frequency. Psychiatry consulted. On 12/10/2017 patient is alert and oriented 3 in no apparent distress he denies any tremor denies any hallucinations he has been tolerating diet well his Ativan requirements are down to 1 mg every 3 hours he was using Ativan every hour yesterday . There is no fever or chills no headache or dizziness there is no chest pain or shortness of breath no cough no nausea or vomiting no abdominal pain no diarrhea and no urinary symptoms On 12/11/2017 patient is alert and oriented 3. Patient states he has been decreasing down and Ativan requirements. Patient does admit that he still having some shakiness and diaphoresis. at this time patient denies chest pain or shortness breath. Patient denies nausea vomiting or diarrhea. Patient denies any abdominal pain. Patient denies any urinary symptoms 12/12/2017 patient is alert and oriented 3. CT of abdomen and pelvis has been ordered along with MRI of the liver from GI services for tomorrow. Patient expresses that he is anxious about these tests. At this time patient denies chest pain or shortness of breath. Patient denies nausea vomiting denies urinary burning or frequency Objective - Vital Signs Vital signs: Vital Signs Temp 98.3 F 12/12/17 05:43 Pulse 77 12/12/17 08:00 Resp 16 12/12/17 08:00 BP 152/85 12/12/17 05:43 Pulse Ox 97 12/12/17 05:43 Intake & Output 12/11/17 12/12/17 12/12/17 18:59 06:59 18:59 Other: Voiding Method Toilet # Voids 1 2 - Exam Head normocephalic Neck supple Lungs clear to auscultation bilaterally no wheezing or crackles Heart regular rate and rhythm S1-S2, no rub or gallop Abdomen is soft nontender nondistended positive bowel sounds no hepatosplenomegaly Extremities no edema Neuro alert and orientated to 3 - Labs CBC & Chem 7: 12/12/17 08:20 12/12/17 08:20 Labs: Abnormal Lab Results - Last 24 Hours (Table) 12/12/17 12/12/17 Range/Units 08:20 08:20 Hgb 12.8 L (13.0-17.5) gm/dL Plt Count 140 L (150-450) k/uL Sodium 135 L (137-145) mmol/L Glucose 135 H (74-99) mg/dL AST 173 H (17-59) U/L ALT 251 H (21-72) U/L Alkaline Phosphatase 131 H (38-126) U/L Total Protein 6.1 L (6.3-8.2) g/dL Assessment and Plan Assessment: 1. Alcohol withdrawal. Patient states he's been drinking a fifth of alcohol for the past 13 days. Serum alcohol 113 upon arrival. Patient admits to history of alcohol abuse and sobriety and relapse in the past. Alcohol withdrawal protocol has been ordered. Continue thiamine. Psych consult has been placed. Patient's sitter at bedside for safety. Psychology evaluated patient. Per psychology patient to continue detox hemoglobin referral to [email or web address] For residential substance abuse treatment. Patient is not suicidal or homicidal per psychiatry. 2. History of EtOH in the past 3. Elevated liver enzymes. AST 175, ALC 152 and total bili 1.4. Liver ultrasound has been ordered. Continue to monitor closely. Ultrasound of the liver completed showing findings most commonly related to hepatic steatosis with solitary 1.5 cm hypoechoic hepatic lesion is incompletely characterized. GI services have been consulted for further evaluation. Amylase 59. Lipase 384. Total bili 1.4, AST 308 and ALT 200. CMP AST trending down to 173. ALT 251 total bili 1.0. GI services have ordered CT and MRI of the liver for tomorrow 12/13 4. History of anxiety and depression DVT prophylaxis Lovenox. GI prophylaxis Protonix I performed an examination of the patient and discussed their management with the Nurse Practitioner. I have reviewed the Nurse Practitioner's notes and agree with the documented findings and plan of care
[2017-12-12] MEDS: LORazepam 1 MG TAB PO PRN (22:08)
--- NOTE | 2017-12-13 00:13 | P.CONS ---
History of Present Illness - Reason for Consult Consult date: 12/12/17 Elevated liver enzymes Requesting physician: Jacey Glasgow - Chief Complaint Alcohol intoxication - History of Present Illness The patient is a 46-year-old male with history of alcohol abuse who presented to the hospital with acute alcohol intoxication. The patient reports that for the past 13 days he has been drinking a fifth of both cut daily. The patient has a history of alcohol abuse in the past but had been sober for 7 years. He reports that he was drinking 2 to a diagnosis recently given to his mother of metastatic lung cancer. On presentation to the hospital the patient had increase in his liver enzymes with a total bilirubin of 1.6, alkaline phosphatase 133, AST 478 and ALT 386. The patient had a lipase of 621 on presentation and an ultrasound which was performed showed hepatic steatosis and a 1.5 cm hypoechoic liver cyst. The patient denies any prior history of liver abnormalities. He denies any recent unintentional weight loss, although he reports that while been drinking he does not eat and tends to have decreased bowel movements. No hematochezia, melena or hematemesis reported. Review of Systems REVIEW OF SYSTEMS: CARDIO: Denies any chest pain or palpitations. PULMONARY: Denies any shortness of breath or wheezing. GENITOURINARY: No dysuria or hematuria. MUSCULOSKELETAL: No weakness reported. SKIN: Denies any new rashes or lesions, jaundice or pallor. PSYCHIATRIC: Denies any depression or anxiety. NEUROLOGY: Denies headache, denies any new focal deficits. EARS: No tinnitus, discharge or new hearing loss. NOSE: No discharge or congestion. EYES: No pain in eyes or change in vision. CONSTITUTIONAL: No recent weight loss. No fever, chills, night sweats. Past Medical History Past Medical History: No Reported History Additional Past Medical History / Comment(s): alcohol abuse History of Any Multi-Drug Resistant Organisms: None Reported Past Surgical History: Tonsillectomy Additional Past Surgical History / Comment(s): bilateral myringotomies/tubes x2 Past Anesthesia/Blood Transfusion Reactions: No Reported Reaction Past Psychological History: Anxiety, Depression Smoking Status: Never smoker Past Alcohol Use History: Abuse, Heavy Past Drug Use History: None Reported - Past Family History Father Family Medical History: Cancer Additional Family Medical History / Comment(s): Father of lymphoma at the age of 52 yrs. Mother Family Medical History: Cancer Additional Family Medical History / Comment(s): Mother is living, she has lung cancer. She is a smoker. Medications and Allergies Home Medications Medication Instructions Recorded Confirmed Type diphenhydrAMINE HCL [Benadryl] 25 mg PO HS PRN 12/08/17 12/08/17 History Allergies Allergy/AdvReac Type Severity Reaction Status Date / Time Iodinated Contrast- Oral and Allergy Anaphylaxis Verified 12/09/17 04:30 IV Dye iodine Allergy Anaphylaxis Verified 12/09/17 04:30 shellfish derived [Shellfish] Allergy Anaphylaxis Verified 12/09/17 04:30 Physical Exam Vitals: Vital Signs Temp Pulse Resp BP Pulse Ox 12/12/17 22:49 96.9 F L 105 H 18 148/94 96 12/12/17 16:00 103 H 18 12/12/17 15:00 98.2 F 103 H 18 140/89 97 12/12/17 08:00 77 16 12/12/17 05:43 98.3 F 77 16 152/85 97 Intake and Output 12/12/17 12/12/17 12/13/17 14:59 22:59 06:59 Other: Voiding Method Toilet Toilet # Voids 2 # Bowel Movements 0 On physical examination, patient appears comfortable in no apparent distress. HEAD: Normocephalic, atraumatic. EYES: No scleral icterus. No conjunctival injection. MOUTH: No lesions, tongue midline. NECK: Trachea midline, no gross abnormalities. CHEST: Clear to auscultation with no wheezing or rhonchi appreciated. HEART: Regular rate and rhythm. ABDOMEN: Soft, obese. Bowel sounds are positive. No organomegaly. No guarding or rigidity. EXTREMITIES: No pedal edema. SKIN: No rashes, no jaundice. NEUROLOGIC: Alert and oriented x3. No focal deficits. Patient is somewhat tremulous. Results CBC & Chem 7: 12/12/17 08:20 12/12/17 08:20 Labs: Abnormal Lab Results - Last 24 Hours (Table) 12/12/17 12/12/17 Range/Units 08:20 08:20 Hgb 12.8 L (13.0-17.5) gm/dL Plt Count 140 L (150-450) k/uL Sodium 135 L (137-145) mmol/L Glucose 135 H (74-99) mg/dL AST 173 H (17-59) U/L ALT 251 H (21-72) U/L Alkaline Phosphatase 131 H (38-126) U/L Total Protein 6.1 L (6.3-8.2) g/dL US - abdomen: report reviewed (Patient had an ultrasound of the abdomen which showed hepatic steatosis and a 1.5 cm hypoechoic liver lesion.) Assessment and Plan (1) Elevated liver enzymes Narrative/Plan: Consistent with history of alcohol abuse and alcoholic hepatitis. Current Visit: Yes Status: Acute Code(s): R74.8 - ABNORMAL LEVELS OF OTHER SERUM ENZYMES SNOMED Code(s): 119445630 (2) Liver cyst, transplanted liver Narrative/Plan: 1.5 cm hypoechoic liver cyst, of unknown etiology. This likely represents a benign cyst however further imaging is needed for characterization. Current Visit: Yes Status: Acute Code(s): T86.49 - OTHER COMPLICATIONS OF LIVER TRANSPLANT; K76.89 - OTHER SPECIFIED DISEASES OF LIVER SNOMED Code(s): 94747411 (3) Alcoholic intoxication Narrative/Plan: Acute alcohol intoxication, with patient reporting 13 days of binge drinking. Current Visit: Yes Status: Acute Priority: Medium Code(s): F10.929 - ALCOHOL USE, UNSPECIFIED WITH INTOXICATION, UNSPECIFIED SNOMED Code(s): 03126301 Plan: Supportive care [facility] protocol Social at replacement Patient unable to on MRI and has ALLERGY to contrast dye. He will therefore need to undergo a 16 hour protocol in order to undergo a triple phase computed tomography scan for further characterization of the liver lesion. Continue to monitor liver enzymes Alcohol abstinence Thank you for allowing us to participate in the care of this patient we will continue to follow
[2017-12-13] MEDS: LORazepam 2 MG/ML INJ IV PRN ×4 (00:46→13:00)
[2017-12-13] MEDS ORDERED: methylPREDNISolone SOD SUCCI 125 MG/2 ML VIAL IV ONE (09:00)
[2017-12-13 09:10] LABS: Basophils % (A) 0 %; Eosinophils # (A) 0.1 k/uL (0-0.7); Eosinophils % (A) 1 %; HCT 41.4 % (39.0-53.0); HGB 13.3 gm/dL (13.0-17.5); Lymphocytes # (A) 0.8 k/uL (1.0-4.8); Lymphocytes % (A) 12 %; MCH 26.2 pg (25.0-35.0); MCV 81.8 fL (80.0-100.0); Mean Platelet Volume 7.9; Monocytes # (A) 0.4 k/uL (0-1.0); Monocytes % (A) 6 %; Neutrophils # (A) 5.3 k/uL (1.3-7.7); Neutrophils % (A) 79 %; Platelet Count 187 k/uL (150-450); RBC 5.05 m/uL (4.30-5.90); RDW 15.7 % (11.5-15.5); WBC 6.7 k/uL (3.8-10.6)
[2017-12-13 09:15] LABS: Amylase 60 U/L (30-110); Lipase 223 U/L (23-300)
[2017-12-13 09:16] LABS: ALT 207 U/L (21-72); AST 106 U/L (17-59); Alkaline Phosphatase 112 U/L (38-126); Anion Gap 10 mmol/L; Blood Urea Nitrogen 9 mg/dL (9-20); Calcium 9.7 mg/dL (8.4-10.2); Carbon Dioxide 23 mmol/L (22-30); Chloride 103 mmol/L (98-107); Glucose 134 mg/dL (74-99); Potassium 4.4 mmol/L (3.5-5.1); Sodium 136 mmol/L (137-145); Total Bilirubin 0.7 mg/dL (0.2-1.3); Total Protein 6.5 g/dL (6.3-8.2)
[2017-12-13] MEDS: ENOXAPARIN 40 MG/0.4 ML SYRINGE SQ SCH (09:23)
[2017-12-13] MEDS: PANTOPRAZOLE 40 MG TABLET PO SCH (09:24)
--- NOTE | 2017-12-13 10:05 | P.PN ---
Subjective Progress Note Date: 12/13/17 Principal diagnosis: Elevated liver enzymes 38-year-old male history of EtOH abuse and with acute alcohol intoxication elevated liver enzymes. CT abdomen scheduled at 3 PM today for further evaluation of hepatic lesion previously seen a liver ultrasound. Presently denies abdominal pain. Afebrile. White count 6.7. Hemoglobin 13.3. Transaminases improving AST 106. ALT 207. TB 0.7. AP 112. Lipase 223. Objective - Vital Signs Vital signs: Vital Signs Temp 98.4 F 12/13/17 05:50 Pulse 98 12/13/17 08:00 Resp 18 12/13/17 08:00 BP 147/95 12/13/17 05:50 Pulse Ox 97 12/13/17 05:50 Intake & Output 12/12/17 12/13/17 12/13/17 18:59 06:59 18:59 Other: Voiding Method Toilet Toilet Toilet # Voids 2 1 # Bowel Movements 0 - Exam General appearance: The patient is alert, oriented, in no acute distress. HET: Head is normocephalic and atraumatic. Pupils are equal and reactive. Oropharynx is clear without lesions. Neck: Supple without lymphadenopathy. Trachea midline. Heart: S1 S2. Regular rate and rhythm. Lungs: No crackles or wheezes are heard. Abdomen: Soft, nontender, nondistended with bowel sounds. No peritoneal signs. No palpable organomegaly or masses. Extremities: Normal skin color and turgor. No cyanosis, rash, ulceration, clubbing, or edema. Radial and pedal pulses are 2/4 bilaterally. Neurological: No focal deficits. Strength and sensation are grossly intact. - Labs CBC & Chem 7: 12/13/17 08:23 12/13/17 08:23 Labs: Abnormal Lab Results - Last 24 Hours (Table) 12/13/17 12/13/17 Range/Units 08:23 08:23 RDW 15.7 H (11.5-15.5) % Lymphocytes # 0.8 L (1.0-4.8) k/uL Sodium 136 L (137-145) mmol/L Glucose 134 H (74-99) mg/dL AST 106 H (17-59) U/L ALT 207 H (21-72) U/L Assessment and Plan (1) Elevated liver enzymes Current Visit: Yes Status: Acute Code(s): R74.8 - ABNORMAL LEVELS OF OTHER SERUM ENZYMES SNOMED Code(s): 005502247 (2) Liver lesion, right lobe Narrative/Plan: Liver ultrasound 12/09/2017 findings compatible with hepatic steatosis with solitary 1.5 cm hypoechoic hepatic lesion is incompletely characterized right posterior lobe. Current Visit: Yes Status: Acute Code(s): K76.9 - LIVER DISEASE, UNSPECIFIED SNOMED Code(s): 630720990 (3) Alcoholic intoxication Current Visit: Yes Status: Acute Priority: Medium Code(s): F10.929 - ALCOHOL USE, UNSPECIFIED WITH INTOXICATION, UNSPECIFIED SNOMED Code(s): 34650671 (4) Hepatic steatosis Narrative/Plan: Per liver ultrasound Current Visit: Yes Status: Acute Code(s): K76.0 - FATTY (CHANGE OF) LIVER, NOT ELSEWHERE CLASSIFIED SNOMED Code(s): 584775762 Plan: 1. CT abdomen this afternoon. Continue supportive symptomatic measures. Hepatitis screen AFP. We'll continue to follow. Assessment and plan a care discussed with Dr. Silva
--- NOTE | 2017-12-13 10:40 | P.PN ---
Subjective Progress Note Date: 12/13/17 This is a 46-year-old male patient of Dr. smart. Patient presented to the emergency room with complaints of alcohol abuse. Patient resented to the emergency department early in the day and was noted to be intoxicated at that time. Patient states he has been drinking a fifth a day of vodka for the past 13 days. Patient states he's intermittently a binge drinker he will go 30 days without drinking and then binge drink for 13+ days of hard liquor. Patient states he's been struggling with alcohol abuse for many years. Patient states he was sober for 7 years and then relapsed. Patient states he is ready to be sober and he has a good support system and he would like to start the process of sobriety. At this time patient states he does not want to harm himself or anyone else. Sitter is at bedside for patient safety. Patient is having active tremors. Patient is on [facility] protocol for alcohol withdrawal. Serum alcohol on admission 113. Patient also positive for opioids and benzodiazepines. ALT 152, AST 175 and total bili 1.4. Patient does report he' s had elevated liver enzymes in the past. At this time patient denies any upper abdominal pain. Patient denies any nausea or vomiting. Will order liver ultrasound. Patient has a known past medical history of EtOH abuse, anxiety and depression. Patient's Patient reports no other medical history. Patient denies any cardiac history. Patient did state he was treated for bronchitis recently but has completed treatment and feels much improved. At this time patient denies chest pain or shortness of breath. Patient denies nausea vomiting or diarrhea. Patient denies any urinary burning or frequency. Psychiatry consulted. On 12/10/2017 patient is alert and oriented 3 in no apparent distress he denies any tremor denies any hallucinations he has been tolerating diet well his Ativan requirements are down to 1 mg every 3 hours he was using Ativan every hour yesterday . There is no fever or chills no headache or dizziness there is no chest pain or shortness of breath no cough no nausea or vomiting no abdominal pain no diarrhea and no urinary symptoms On 12/11/2017 patient is alert and oriented 3. Patient states he has been decreasing down and Ativan requirements. Patient does admit that he still having some shakiness and diaphoresis. at this time patient denies chest pain or shortness breath. Patient denies nausea vomiting or diarrhea. Patient denies any abdominal pain. Patient denies any urinary symptoms 12/12/2017 patient is alert and oriented 3. CT of abdomen and pelvis has been ordered along with MRI of the liver from GI services for tomorrow. Patient expresses that he is anxious about these tests. At this time patient denies chest pain or shortness of breath. Patient denies nausea vomiting denies urinary burning or frequency On 12/13/2017 patient is alert and oriented 3. Patient requested that he is anxious about the computed tomography scan today. Patient has been requiring Ativan. Liver enzymes are improving. Plan today at 3:00 for triple view computed tomography scan. This time patient denies chest pain or shortness breath. Patient denies nausea vomiting or diarrhea. Objective - Vital Signs Vital signs: Vital Signs Temp 98.4 F 12/13/17 05:50 Pulse 98 12/13/17 08:00 Resp 18 12/13/17 08:00 BP 147/95 12/13/17 05:50 Pulse Ox 97 12/13/17 05:50 Intake & Output 12/12/17 12/13/17 12/13/17 18:59 06:59 18:59 Other: Voiding Method Toilet Toilet Toilet # Voids 2 1 # Bowel Movements 0 - Exam Head normocephalic Neck supple Lungs clear to auscultation bilaterally no wheezing or crackles Heart regular rate and rhythm S1-S2, no rub or gallop Abdomen is soft nontender nondistended positive bowel sounds no hepatosplenomegaly Extremities no edema Neuro alert and orientated to 3 - Labs CBC & Chem 7: 12/13/17 08:23 12/13/17 08:23 Labs: Abnormal Lab Results - Last 24 Hours (Table) 12/13/17 12/13/17 Range/Units 08:23 08:23 RDW 15.7 H (11.5-15.5) % Lymphocytes # 0.8 L (1.0-4.8) k/uL Sodium 136 L (137-145) mmol/L Glucose 134 H (74-99) mg/dL AST 106 H (17-59) U/L ALT 207 H (21-72) U/L Assessment and Plan Assessment: 1. Alcohol withdrawal. Patient states he's been drinking a fifth of alcohol for the past 13 days. Serum alcohol 113 upon arrival. Patient admits to history of alcohol abuse and sobriety and relapse in the past. Alcohol withdrawal protocol has been ordered. Continue thiamine. Psych consult has been placed. Patient's sitter at bedside for safety. Psychology evaluated patient. Per psychology patient to continue detox referral to [facility] For residential substance abuse treatment. Patient is not suicidal or homicidal per psychiatry. 2. History of EtOH in the past 3. Elevated liver enzymes. AST 175, ALC 152 and total bili 1.4. Liver ultrasound has been ordered. Continue to monitor closely. Ultrasound of the liver completed showing findings most commonly related to hepatic steatosis with solitary 1.5 cm hypoechoic hepatic lesion is incompletely characterized. GI services have been consulted for further evaluation. Amylase 59. Lipase 384. Total bili 1.4, AST 308 and ALT 200. CMP AST trending down to 173. ALT [address] of abdomen and pelvis with and without contrast today per GI services to further investigate liver lesion. AST improving at 106, ALT 207 and alkaline phosphatase 112. Total bilirubin within normal limits at 0.7. Lipase within normal limits at 223 4. History of anxiety and depression DVT prophylaxis Lovenox. GI prophylaxis Protonix I performed an examination of the patient and discussed their management with the Nurse Practitioner. I have reviewed the Nurse Practitioner's notes and agree with the documented findings and plan of care Despite discharged in the next 24-48 hours. Social work consulted for outpatient alcohol treatment
[2017-12-13] MEDS: BARIUM SULFATE 450 ML ORAL.SUSP BOTTLE PO PRN ×2 (11:08→14:10)
[2017-12-13] MEDS: THIAMINE 100 MG TAB PO SCH ×2 (11:09→16:21)
[2017-12-13] MEDS ORDERED: diphenhydrAMINE 50 MG/ML 1 ML VIAL IVP ONE (14:30)
--- NOTE | 2017-12-13 16:53 | CT ---
EXAMINATION TYPE: CT abdomen and pelvis, dual phase liver CT DATE OF EXAM: 12/13/2017 COMPARISON: Correlation ultrasound 12/09/2017 HISTORY: 46-year-old male with liver lesion, abnormal liver US TECHNIQUE: Contiguous axial scanning of the abdomen and pelvis following administration of 100 ml Iso wali 300 IV contrast. Late arterial phase and portal venous phase imaging was performed. Initial nonco ntrast scan through the liver. Delayed images through the kidneys and coronal/sagittal reconstruction s performed. CT DLP: 3172 mGycm Automated exposure control for dose reduction was used. FINDINGS: Heart normal size without pericardial effusion. Lung bases clear without pleural effusion. Liver enlarged measuring 23.0 cm with marked diminished attenuation below that of fluid. There is fat ty sparing along the gallbladder fossa. Soft tissue lesion measuring 1.6 cm within segment 5/6 of the right liver lobe. On arterial phase, th is shows peripheral nodular enhancement. On portal venous phase, the nodular enhancement enlarges and coalesces. On delayed kidney images, enhancement is nearly complete. This finding corresponds well t o the questioned ultrasound lesion. There is a small 7 mm lesion in the right hepatic dome, axial image 20 which shows density following the blood pool suggesting a flash filling hemangioma. No suspicious focal liver lesion seen. Portal venous system is patent. No biliary ductal dilatation. Gallbladder, adrenal glands, kidneys, spleen with hilar splenule, and pancreas appear within normal l imits. No dilated small bowel, free fluid, or free air. No mesenteric or retroperitoneal lymphadenopathy. Normal appendix. Mild stool throughout the colon. There is circumferential wall thickening of the proximal to mid sigmoid colon with associated diverti culosis but no pericolonic inflammatory change seen. Bladder is urine distended. No abnormal fluid collection in the pelvis or pelvic lymphadenopathy. No mesenteric or retroperitoneal lymphadenopathy. Bones: Mild degenerative changes at the hips and SI joints. Additional degenerative disc disease L4-L 5 and L5-S1. No osseous destructive process. IMPRESSION: 1. HEPATOMEGALY (23.0 CM) WITH SEVERE HEPATIC STEATOSIS. LIVER DENSITY IS BELOW THAT OF FLUID. CORREL ATE WITH LFT's, LIPID PROFILE, AND PATIENT RISK FACTORS. 2. 1.6 CM BENIGN HEPATIC HEMANGIOMA IN THE RIGHT LIVER LOBE CORRESPONDING TO THE QUESTIONED ULTRASOUN D FINDING. A SECOND PROBABLE FLASH FILLING HEMANGIOMA MEASURING 7 MM IN THE RIGHT HEPATIC DOME. NO MOSS SPICIOUS LIVER LESION. 3. SIGMOID DIVERTICULOSIS WITH CIRCUMFERENTIAL WALL THICKENING OF THE PROXIMAL TO MID SIGMOID COLON. NO SURROUNDING INFLAMMATION. FINDINGS SUSPECTED TO REPRESENT CHRONIC DIVERTICULITIS. NO DISCRETE MASS . DIRECT VISUALIZATION CAN BE CONSIDERED.
[2017-12-13] MEDS: LORazepam 1 MG TAB PO PRN (22:34)
[2017-12-14 03:42] LABS: Hepatitis A Antibody IgM Non-Reactive (Non-Reactive); Hepatitis B Core IgM Non-Reactive (Non-Reactive)
[2017-12-14 07:12] VITALS: BP 124/75; PULSE 74; RESP 17; TEMP 97
[2017-12-14] MEDS: PANTOPRAZOLE 40 MG TABLET PO SCH (07:38)
[2017-12-14] MEDS: LORazepam 1 MG TAB PO PRN (07:38)
[2017-12-14] MEDS: ENOXAPARIN 40 MG/0.4 ML SYRINGE SQ SCH (07:38)
[2017-12-14 09:16] LABS: Anisocytosis Slight; Basophils # (A) 0.1 k/uL (0-0.2); Basophils % (A) 1 %; Eosinophils # (A) 0.2 k/uL (0-0.7); Eosinophils % (A) 2 %; HCT 43.2 % (39.0-53.0); HGB 13.8 gm/dL (13.0-17.5); Lymphocytes # (A) 2.3 k/uL (1.0-4.8); Lymphocytes % (A) 28 %; MCH 26.2 pg (25.0-35.0); MCHC 31.8 g/dL (31.0-37.0); MCV 82.4 fL (80.0-100.0); Mean Platelet Volume 7.6; Monocytes # (A) 0.9 k/uL (0-1.0); Monocytes % (A) 11 %; Neutrophils # (A) 4.4 k/uL (1.3-7.7); Neutrophils % (A) 54 %; Platelet Count 230 k/uL (150-450); RBC 5.24 m/uL (4.30-5.90); WBC 8.1 k/uL (3.8-10.6)
[2017-12-14 09:38] LABS: ALT 218 U/L (21-72); AST 147 U/L (17-59); Alkaline Phosphatase 152 U/L (38-126); Anion Gap 9 mmol/L; Blood Urea Nitrogen 20 mg/dL (9-20); Carbon Dioxide 25 mmol/L (22-30); Chloride 106 mmol/L (98-107); Glucose 93 mg/dL (74-99); Sodium 140 mmol/L (137-145); Total Bilirubin 0.5 mg/dL (0.2-1.3); Total Protein 6.6 g/dL (6.3-8.2)
[2017-12-14] MEDS: THIAMINE 100 MG TAB PO SCH (11:11)
--- NOTE | 2017-12-14 11:26 | P.PN ---
Subjective Progress Note Date: 12/14/17 Principal diagnosis: Elevated liver enzymes 46-year-old male history of EtOH abuse and with acute alcohol intoxication elevated liver enzymes. CT abdomen yesterday reported no suspicious focal liver lesion. 1.6 cm benign hepatic hemangioma in the right liver lobe. Hepatomegaly 23 cm with severe hepatic steatosis. Sigmoid diverticulosis with wall thickening of the proximal to mid sigmoid without inflammation possible chronic diverticulitis no discrete mass. AFP within normal limits. Hepatitis screen nonreactive. Hemoglobin 13.8. White count 8.1. Total bilirubin 0.5. AST 147. ALT 218. AP 152. Objective - Vital Signs Vital signs: Vital Signs Temp 97.0 F L 12/14/17 07:00 Pulse 74 12/14/17 07:00 Resp 17 12/14/17 07:00 BP 124/75 12/14/17 07:00 Pulse Ox 98 12/14/17 07:00 Intake & Output 12/13/17 12/14/17 12/14/17 18:59 06:59 18:59 Weight 90.718 kg Other: Voiding Method Toilet # Voids 3 1 - Exam General appearance: The patient is alert, oriented, in no acute distress. HET: Head is normocephalic and atraumatic. Pupils are equal and reactive. Oropharynx is clear without lesions. Neck: Supple without lymphadenopathy. Trachea midline. Heart: S1 S2. Regular rate and rhythm. Lungs: No crackles or wheezes are heard. Abdomen: Soft, nontender, nondistended with bowel sounds. No peritoneal signs. No palpable organomegaly or masses. Extremities: Normal skin color and turgor. No cyanosis, rash, ulceration, clubbing, or edema. Radial and pedal pulses are 2/4 bilaterally. Neurological: No focal deficits. Strength and sensation are grossly intact. - Labs CBC & Chem 7: 12/14/17 08:31 12/14/17 08:31 Labs: Abnormal Lab Results - Last 24 Hours (Table) 12/14/17 12/14/17 Range/Units 08:31 08:31 RDW 16.0 H (11.5-15.5) % AST 147 H (17-59) U/L ALT 218 H (21-72) U/L Alkaline Phosphatase 152 H (38-126) U/L Assessment and Plan (1) Elevated liver enzymes Current Visit: Yes Status: Acute Code(s): R74.8 - ABNORMAL LEVELS OF OTHER SERUM ENZYMES SNOMED Code(s): 254966839 (2) Liver lesion, right lobe Narrative/Plan: Hepatic hemangioma per CT Current Visit: Yes Status: Acute Code(s): K76.9 - LIVER DISEASE, UNSPECIFIED SNOMED Code(s): 169925722 (3) Alcoholic intoxication Narrative/Plan: History of alcohol abuse Current Visit: Yes Status: Acute Priority: Medium Code(s): F10.929 - ALCOHOL USE, UNSPECIFIED WITH INTOXICATION, UNSPECIFIED SNOMED Code(s): 72068507 (4) Hepatic steatosis Current Visit: Yes Status: Acute Code(s): K76.0 - FATTY (CHANGE OF) LIVER, NOT ELSEWHERE CLASSIFIED SNOMED Code(s): 143510132 (5) Hepatomegaly Current Visit: Yes Status: Acute Code(s): R16.0 - HEPATOMEGALY, NOT ELSEWHERE CLASSIFIED SNOMED Code(s): 69179341 (6) Colon, diverticulosis Current Visit: Yes Status: Acute Code(s): K57.30 - DVRTCLOS OF LG INT W/O PERFORATION OR ABSCESS W/O BLEEDING SNOMED Code(s): 800482198 Plan: 1. Agreeable for discharge. Alcohol abstinence reinforced. Follow-up in office in 2-3 weeks for reevaluation and discussion of outpatient colonoscopy. Assessment of plan of care discussed with Dr. Silva
[2017-12-14] MEDS: LORazepam 2 MG/ML INJ IV PRN (13:01)
--- NOTE | 2017-12-14 15:09 | P.DS ---
Providers Date of admission: 12/09/17 06:39 Expected date of discharge: 12/14/17 Attending physician: Jacey Glasgow Consults: 12/09/17 06:40 Consult Physician Routine Consulting Provider: Dheeraj Foreman Consult Reason/Comments: suicidal, alcohol abuse Do you want consulting provider notified?: Yes, Notify in am 12/11/17 09:51 Consult Physician Routine Consulting Provider: Ju[address] Consult Reason/Comments: elevated liver enzymes, and liver U/S Do you want consulting provider notified?: Yes Primary care physician: Marie Akins Hospital Course: Discharge diagnosis 1. Alcohol withdrawal. Patient states he's been drinking a fifth of alcohol for the past 13 days. Serum alcohol 113 upon arrival. Patient admits to history of alcohol abuse and sobriety and relapse in the past. Alcohol withdrawal protocol has been ordered. Continue thiamine. Psych consult has been placed. Patient's sitter at bedside for safety. Psychology evaluated patient. Per psychology patient to continue detox referral to [facility] For residential substance abuse treatment. Patient is not suicidal or homicidal per psychiatry. 2. History of EtOH in the past 3. Elevated liver enzymes. AST 175, ALC 152 and total bili 1.4. Liver ultrasound has been ordered. Continue to monitor closely. Ultrasound of the liver completed showing findings most commonly related to hepatic steatosis with solitary 1.5 cm hypoechoic hepatic lesion is incompletely characterized. GI services have been consulted for further evaluation. Amylase 59. Lipase 384. Total bili 1.4, AST 308 and ALT 200. CMP AST trending down to 173. ALT [address] of abdomen and pelvis with and without contrast today per GI services to further investigate liver lesion. AST 147, ALT [address] phosphatase [address] of abdomen and pelvis completed showing hepatomegaly with severe hepatic steatosis. Liver densities below that of fluid. 1.6 cm benign hepatic hematomanioma the right liver lobe corresponding to the question ultrasound finding. As been cleared for discharge from GI services. Patient will follow-up outpatient. repeat CMP has been ordered for 2 days 4. History of anxiety and depression 5. Diverticulosis. CT of abdomen and pelvis showing sigmoid diverticulosis with circumferential wall thickening of proximal to mid sigmoid colon. No surrounding formation findings suspected to represent chronic diverticulitis. No discrete mass. Direct visualization can be considered. Patient to follow- up with GI services outpatient for colonoscopy Hospital course This is a 46-year-old male patient of Dr. akins. Patient presented to the emergency room with complaints of alcohol abuse. Patient resented to the emergency department early in the day and was noted to be intoxicated at that time. Patient states he has been drinking a fifth a day of vodka for the past 13 days. Patient states he's intermittently a binge drinker he will go 30 days without drinking and then binge drink for 13+ days of hard liquor. Patient states he's been struggling with alcohol abuse for many years. Patient states he was sober for 7 years and then relapsed. Patient states he is ready to be sober and he has a good support system and he would like to start the process of sobriety. At this time patient states he does not want to harm himself or anyone else. Sitter is at bedside for patient safety. Patient is having active tremors. Patient is on [facility] protocol for alcohol withdrawal. Serum alcohol on admission 113. Patient also positive for opioids and benzodiazepines. ALT 152, AST 175 and total bili 1.4. Patient does report he' s had elevated liver enzymes in the past. At this time patient denies any upper abdominal pain. Patient denies any nausea or vomiting. Will order liver ultrasound. Patient has a known past medical history of EtOH abuse, anxiety and depression. Patient's Patient reports no other medical history. Patient denies any cardiac history. Patient did state he was treated for bronchitis recently but has completed treatment and feels much improved. At this time patient denies chest pain or shortness of breath. Patient denies nausea vomiting or diarrhea. Patient denies any urinary burning or frequency. Psychiatry consulted. On 12/10/2017 patient is alert and oriented 3 in no apparent distress he denies any tremor denies any hallucinations he has been tolerating diet well his Ativan requirements are down to 1 mg every 3 hours he was using Ativan every hour yesterday . There is no fever or chills no headache or dizziness there is no chest pain or shortness of breath no cough no nausea or vomiting no abdominal pain no diarrhea and no urinary symptoms On 12/11/2017 patient is alert and oriented 3. Patient states he has been decreasing down and Ativan requirements. Patient does admit that he still having some shakiness and diaphoresis. at this time patient denies chest pain or shortness breath. Patient denies nausea vomiting or diarrhea. Patient denies any abdominal pain. Patient denies any urinary symptoms 12/12/2017 patient is alert and oriented 3. CT of abdomen and pelvis has been ordered along with MRI of the liver from GI services for tomorrow. Patient expresses that he is anxious about these tests. At this time patient denies chest pain or shortness of breath. Patient denies nausea vomiting denies urinary burning or frequency On 12/13/2017 patient is alert and oriented 3. Patient requested that he is anxious about the computed tomography scan today. Patient has been requiring Ativan. Liver enzymes are improving. Plan today at 3:00 for triple view computed tomography scan. This time patient denies chest pain or shortness breath. Patient denies nausea vomiting or diarrhea. On 12/14/2017 patient is alert and oriented 3. Patient states he is feeling much more relaxed today. Patient states he feels ready to go home. Patient is planning to follow-up outpatient with [facility]. CT is a good support system at home. Patient denies any thoughts of self harm to himself or others. Patient advised to follow-up with PCP and GI services. CMP has been ordered for 2 days. At This time patient denies chest pain or shortness of breath. Patient denies nausea vomiting or diarrhea. Patient denies any urinary burning or frequency . I performed an examination of the patient and discussed their management with the Nurse Practitioner. I have reviewed the Nurse Practitioner's notes and agree with the documented findings and plan of care Patient Condition at Discharge: Stable Plan - Discharge Summary Discharge Rx Participant: Yes New Discharge Prescriptions: New LORazepam [Ativan] 0.5 mg PO Q6HR PRN 3 Days #12 tab PRN Reason: Alcohol Withdrawal Continue diphenhydrAMINE HCL [Benadryl] 25 mg PO HS PRN PRN Reason: Allergy Symptoms Discharge Medication List diphenhydrAMINE HCL [Benadryl] 25 mg PO HS PRN 12/08/17 [History] LORazepam [Ativan] 0.5 mg PO Q6HR PRN 3 Days #12 tab 12/14/17 [Rx] Follow up Appointment(s)/Referral(s): Marie Akins MD [Primary Care Provider] - 1-2 days Ottoniel Silva MD [STAFF PHYSICIAN] - 2 Weeks Ambulatory/Diagnostic Orders: Comprehensive Metabolic Panel [LAB.AMB] Time Frame: 2 Days, Location: None Selected Patient Instructions/Handouts: Alcohol Withdrawal (DC) Discharge Disposition: HOME SELF-CARE
== END 2017-12-14 15:44 | disposition home or self-care (01) | DRG 896 ==
LOC: EC 04:22 → 4MS4W 06:39
PROVIDERS: ADMIT Internal Medicine; ATTEND Internal Medicine
DX: F10.239 Alcohol dependence with withdrawal, unspecified (principal); K85.90 Acute pancreatitis without necrosis or infection, unspecified; F10.229 Alcohol dependence with intoxication, unspecified; D18.03 Hemangioma of intra-abdominal structures; F32.9 Major depressive disorder, single episode, unspecified; F41.9 Anxiety disorder, unspecified; K57.30 Diverticulosis of large intestine without perforation or abscess without bleeding; K76.0 Fatty (change of) liver, not elsewhere classified; R16.0 Hepatomegaly, not elsewhere classified; Z91.041 Radiographic dye allergy status; Z91.013 Allergy to seafood; Z80.1 Family history of malignant neoplasm of trachea, bronchus and lung; Z80.7 Family history of other malignant neoplasms of lymphoid, hematopoietic and related tissues
CPT/HCPCS: 36415; 74178; 76705; 80053; 80074; 80306; 80320; 82105; 82150; 82728; 83540; 83550; 83690; 83735; 85025; 96361; 96372; 96374; 96376; 99285

== ENCOUNTER 2019-11-04 10:57 | Emergency (ER) | payer OTHER ==
[2019-11-04 11:03] VITALS: RESP 18
[2019-11-04] MEDS ORDERED: SODIUM CHLORIDE 0.9% 1,000 ML IV ONE (11:10)
--- NOTE | 2019-11-04 11:13 | ED ---
General Adult HPI - General Chief complaint: Alcohol Stated complaint: drinking 3wks straight Time Seen by Provider: 11/04/19 11:00 Source: patient, RN notes reviewed, old records reviewed Mode of arrival: wheelchair Limitations: no limitations - History of Present Illness Initial comments: This is a 48-year-old male who presents emergency Department stating he has been drinking every day for 3 weeks. Patient states she's been drinking a fifth of alcohol and his last drink was 2 hours ago. Patient states he feels dehydrated and he would like to get rehydrated and states that after he gets hydrated he'll go back to AA and stop drinking on his own. Patient denies any pain patient denies any chest pain difficulty breathing shortest breath per patient denies any fever chills or cough. Patient denies lightheadedness or dizziness. Patient denies any abdominal pain patient denies nausea vomiting diarrhea. - Related Data Home Medications Medication Instructions Recorded Confirmed diphenhydrAMINE HCL [Benadryl] 25 mg PO HS PRN 12/08/17 12/08/17 Previous Rx's Medication Instructions Recorded LORazepam [Ativan] 0.5 mg PO Q6HR PRN 3 Days #12 tab 12/14/17 Allergies Allergy/AdvReac Type Severity Reaction Status Date / Time Iodinated Contrast Media Allergy Anaphylaxis Verified 12/09/17 04:30 [Iodinated Contrast- Oral and IV Dye] iodine Allergy Anaphylaxis Verified 12/09/17 04:30 shellfish derived [Shellfish] Allergy Anaphylaxis Verified 12/09/17 04:30 Review of Systems ROS Statement: Those systems with pertinent positive or pertinent negative responses have been documented in the HPI. ROS Other: All systems not noted in ROS Statement are negative. Past Medical History Past Medical History: Hypertension Additional Past Medical History / Comment(s): alcohol abuse History of Any Multi-Drug Resistant Organisms: None Reported Past Surgical History: Tonsillectomy Additional Past Surgical History / Comment(s): bilateral myringotomies/tubes x2 Past Anesthesia/Blood Transfusion Reactions: No Reported Reaction Past Psychological History: Anxiety, Depression Smoking Status: Former smoker Past Alcohol Use History: Abuse, Daily, Heavy Past Drug Use History: None Reported - Past Family History Father Family Medical History: Cancer Additional Family Medical History / Comment(s): Father of lymphoma at the age of 52 yrs. Mother Family Medical History: Cancer Additional Family Medical History / Comment(s): Mother is living, she has lung cancer. She is a smoker. General Exam - General Exam Comments Initial Comments: GENERAL: Patient is well-developed and well-nourished. Patient is nontoxic and well- hydrated and is in no acute distress. Patient does appear intoxicated ENT: Neck is soft and supple. No significant lymphadenopathy is noted. Oropharynx is clear. Moist mucous membranes. Neck has full range of motion without eliciting any pain. EYES: The sclera were anicteric and conjunctiva were pink and moist. Extraocular movements were intact and pupils were equal round and reactive to light. Eyelids were unremarkable. PULMONARY: Unlabored respirations. Good breath sounds bilaterally. No audible rales rhonchi or wheezing was noted. CARDIOVASCULAR: Patient is tachycardic at 120 beats a minute ABDOMEN: Soft and nontender with normal bowel sounds. SKIN: Skin is clear with no lesions or rashes and otherwise unremarkable. NEUROLOGIC: Patient is alert and oriented x3. Cranial nerves II through XII are grossly intact. Motor and sensory are also intact. Normal speech, volume and content. Symmetrical smile. MUSCULOSKELETAL: Normal extremities with adequate strength and full range of motion. No lower extremity swelling or edema. No calf tenderness. LYMPHATICS: No significant lymphadenopathy is noted PSYCHIATRIC: Normal psychiatric evaluation. Limitations: no limitations Course Vital Signs 11/04/19 10:59 Temperature 98.1 F Pulse Rate 121 H Respiratory 18 Rate Blood Pressure 146/102 O2 Sat by Pulse 93 L Oximetry Medical Decision Making - Lab Data Result diagrams: 11/04/19 11:21 11/04/19 11:21 Lab Results 11/04/19 11/04/19 Range/Units 11:21 11:21 WBC 4.6 (3.8-10.6) k/uL RBC 5.96 H (4.30-5.90) m/uL Hgb 15.3 (13.0-17.5) gm/dL Hct 47.0 (39.0-53.0) % MCV 78.8 L (80.0-100.0) fL MCH 25.6 (25.0-35.0) pg MCHC 32.5 (31.0-37.0) g/dL RDW 14.8 (11.5-15.5) % Plt Count 191 (150-450) k/uL Neutrophils % 53 % Lymphocytes % 34 % Monocytes % 7 % Eosinophils % 1 % Basophils % 1 % Neutrophils # 2.5 (1.3-7.7) k/uL Lymphocytes # 1.6 (1.0-4.8) k/uL Monocytes # 0.3 (0-1.0) k/uL Eosinophils # 0.1 (0-0.7) k/uL Basophils # 0.1 (0-0.2) k/uL Sodium 142 (137-145) mmol/L Potassium 4.0 (3.5-5.1) mmol/L Chloride 104 (98-107) mmol/L Carbon Dioxide 24 (22-30) mmol/L Anion Gap 14 mmol/L BUN 16 (9-20) mg/dL Creatinine 0.93 (0.66-1.25) mg/dL Est GFR (CKD-EPI)AfAm >90 (>60 ml/min/1.73 sqM) Est GFR (CKD-EPI)NonAf >90 (>60 ml/min/1.73 sqM) Glucose 117 H (74-99) mg/dL Calcium 8.7 (8.4-10.2) mg/dL Magnesium 2.2 (1.6-2.3) mg/dL Total Bilirubin 0.7 (0.2-1.3) mg/dL AST 85 H (17-59) U/L ALT 80 H (4-49) U/L Alkaline Phosphatase 90 (38-126) U/L Total Protein 7.4 (6.3-8.2) g/dL Albumin 4.7 (3.5-5.0) g/dL Disposition Clinical Impression: Alcoholic intoxication, Dehydration Disposition: HOME SELF-CARE Instructions (If sedation given, give patient instructions): Alcohol Intoxication (ED) Is patient prescribed a controlled substance at d/c from ED?: No Referrals: Marie Akins MD [Primary Care Provider] - 1-2 days Time of Disposition: 12:14
[2019-11-04] MEDS ORDERED: SODIUM CHLORIDE 0.9% 1,000 ML with MVI, ADULT NO.4 WITH VIT K 10 ML, THIAMINE 100 MG, F... IV ONE ×4 (11:45)
[2019-11-04 11:55] LABS: Basophils # (A) 0.1 k/uL (0-0.2); Basophils % (A) 1 %; Eosinophils # (A) 0.1 k/uL (0-0.7); Eosinophils % (A) 1 %; HGB 15.3 gm/dL (13.0-17.5); Lymphocytes # (A) 1.6 k/uL (1.0-4.8); Lymphocytes % (A) 34 %; MCH 25.6 pg (25.0-35.0); MCHC 32.5 g/dL (31.0-37.0); MCV 78.8 fL (80.0-100.0); Mean Platelet Volume 6.8; Monocytes # (A) 0.3 k/uL (0-1.0); Monocytes % (A) 7 %; Neutrophils # (A) 2.5 k/uL (1.3-7.7); Neutrophils % (A) 53 %; Platelet Count 191 k/uL (150-450); RBC 5.96 m/uL (4.30-5.90); RDW 14.8 % (11.5-15.5); WBC 4.6 k/uL (3.8-10.6)
[2019-11-04 12:13] LABS: ALT 80 U/L (4-49); AST 85 U/L (17-59); African American GFR (CKD) >90 (>60 ml/min/1.73 sqM); Albumin 4.7 g/dL (3.5-5.0); Alkaline Phosphatase 90 U/L (38-126); Anion Gap 14 mmol/L; Blood Urea Nitrogen 16 mg/dL (9-20); Calcium 8.7 mg/dL (8.4-10.2); Carbon Dioxide 24 mmol/L (22-30); Chloride 104 mmol/L (98-107); Glucose 117 mg/dL (74-99); Magnesium 2.2 mg/dL (1.6-2.3); Non-African American GFR(CKD) >90 (>60 ml/min/1.73 sqM); Sodium 142 mmol/L (137-145); Total Bilirubin 0.7 mg/dL (0.2-1.3); Total Protein 7.4 g/dL (6.3-8.2)
[2019-11-04] MEDS ORDERED: LORazepam 2 MG/ML INJ IV STA (12:14)
[2019-11-04 12:27] VITALS: BP 154/96; PULSE 93
[2019-11-04 12:41] VITALS: TEMP 97.9
== END 2019-11-04 12:40 | disposition home or self-care (01) ==
LOC: EC 10:57
DX: F10.129 Alcohol abuse with intoxication, unspecified (principal); Y90.9 Presence of alcohol in blood, level not specified; E86.0 Dehydration; Z91.041 Radiographic dye allergy status; Z91.048 Other nonmedicinal substance allergy status; Z91.013 Allergy to seafood; Z87.891 Personal history of nicotine dependence
CPT/HCPCS: 82075; 36415; 80053; 83735; 85025; 99284; 96365; 96375; J2060; J3411